=== PATIENT | female | born 1990 | race American Indian/Alaskan Native ===

== ENCOUNTER 2019-05-26 19:39 | Emergency (ER) | payer MEDICAID ==
--- NOTE | 2019-05-26 20:10 | Event Note ---
ED Screening Note ED Screening Note: pt presents for lower abd pain lower back pain +nausea, +vomiting no diarrhea no fever +frequency PMHx DM-type 1 no allergies to meds This initial assessment/diagnostic orders/clinical plan/treatment(s) is/are subject to change based on patients health status, clinical progression and re- assessment by fellow clinical providers in the ED. Further treatment and workup at subsequent clinical providers discretion. Patient/guardian urged not to elope from the ED as their condition may be serious if not clinically assessed and managed. Initial orders include: labs, UA, urine preg
[2019-05-26 21:22] LABS: Basophils # (Auto) 0.1 K/mm3 (0.0-0.1); Basophils % (Auto) 1.3 % (0.0-1.8); Eosinophils # (Auto) 0.1 K/mm3 (0.0-0.4); Eosinophils % (Auto) 1.5 % (0.0-4.3); Hematocrit 34.7 % (30.3-42.9); Hemoglobin 11.6 gm/dl (10.1-14.3); Lymphocytes # (Auto) 1.6 K/mm3 (1.2-5.4); Lymphocytes % (Auto) 32.6 % (13.4-35.0); Mean Corpuscular HGB Conc 33 % (30-34); Mean Corpuscular Volume 82 fl (79-97); Monocytes # (Auto) 0.4 K/mm3 (0.0-0.8); Monocytes % (Auto) 7.2 % (0.0-7.3); Platelet Count 210 K/mm3 (140-440); Red Blood Count 4.25 M/mm3 (3.65-5.03); Red Cell Distribution Width 13.3 % (13.2-15.2)
[2019-05-26 21:59] LABS: Alanine Aminotransferase 13 units/L (7-56); Albumin 3.6 g/dL (3.9-5); BUN/Creatinine Ratio 16; Blood Urea Nitrogen 14 mg/dL (7-17); Calcium 9.4 mg/dL (8.4-10.2); Hemolysis Index 4
--- NOTE | 2019-05-26 23:04 | Emergency Department Report ---
ED Abdominal Pain HPI - General Chief Complaint: Abdominal Pain Stated Complaint: HYPERGLYCEMIA Time Seen by Provider: 05/26/19 20:09 Source: patient, EMS Mode of arrival: Wheelchair Limitations: No Limitations - History of Present Illness Initial Comments: Patient is a 28-year-old female that presents emergency room with complaints of lower abdominal pain radiating to her right back. Patient states the pain is worse with movement and better with rest. Patient states the pain is a 8 out of 10. Patient states she's also been having a lot of constipation. Patient denies dysuria. Patient denies fever and chills. Patient states she's had a lot of nausea and vomiting as well. Patient denies blood in her vomitus or in her stool. Patient also complaining of elevated blood sugar. MD Complaint: abdominal pain -: Sudden Location: RLQ Radiation: R flank, back Migration to: no migration Severity: severe Severity scale (0 -10): 8 Quality: stabbing Consistency: constant Improves With: rest Worsens With: vomiting, movement Associated Symptoms: nausea, vomiting, constipation. denies: diarrhea, fever, chills, dysuria, hematemesis, hematochezia, melena, hematuria, syncope - Related Data Previous Rx's Medication Instructions Recorded Last Taken Type Ondansetron [Zofran Odt] 4 mg PO Q6HR PRN #15 tab.rapdis 05/27/19 Unknown Rx Allergies Allergy/AdvReac Type Severity Reaction Status Date / Time tomato Allergy Unknown Verified 05/26/19 20:01 ED Review of Systems ROS: Stated complaint: HYPERGLYCEMIA Other details as noted in HPI Constitutional: denies: chills, fever Eyes: denies: eye pain, eye discharge, vision change ENT: denies: ear pain, throat pain Respiratory: denies: cough, shortness of breath, wheezing Cardiovascular: denies: chest pain, palpitations Endocrine: no symptoms reported Gastrointestinal: abdominal pain, nausea, vomiting. denies: diarrhea Genitourinary: denies: urgency, dysuria, discharge Musculoskeletal: denies: back pain, joint swelling, arthralgia Skin: denies: rash, lesions Neurological: denies: headache, weakness, paresthesias Psychiatric: denies: anxiety, depression Hematological/Lymphatic: denies: easy bleeding, easy bruising ED Past Medical Hx - Past Medical History Previous Medical History?: Yes Hx Diabetes: Yes (Type 1) - Surgical History Past Surgical History?: No - Family History Family history: no significant - Social History Smoking Status: Never Smoker Substance Use Type: None - Medications Home Medications: Home Medications Medication Instructions Recorded Confirmed Last Taken Type Ondansetron [Zofran Odt] 4 mg PO Q6HR PRN #15 tab.judydis 05/27/19 Unknown Rx ED Physical Exam - General Limitations: No Limitations General appearance: alert, in no apparent distress - Head Head exam: Present: atraumatic, normocephalic - Eye Eye exam: Present: normal appearance - ENT ENT exam: Present: mucous membranes moist. Absent: mucous membranes dry - Neck Neck exam: Present: normal inspection - Respiratory Respiratory exam: Present: normal lung sounds bilaterally. Absent: respiratory distress, wheezes, rales - Cardiovascular Cardiovascular Exam: Present: regular rate, normal rhythm. Absent: systolic murmur, diastolic murmur, rubs, gallop - GI/Abdominal GI/Abdominal exam: Present: soft, tenderness (right lower quadrant tenderness), normal bowel sounds - Extremities Exam Extremities exam: Present: normal inspection - Back Exam Back exam: Present: normal inspection - Neurological Exam Neurological exam: Present: alert, oriented X3 - Psychiatric Psychiatric exam: Present: normal affect, normal mood - Skin Skin exam: Present: warm, dry, intact, normal color. Absent: rash ED Course Vital Signs 05/26/19 05/26/19 05/26/19 19:59 20:09 23:24 Temperature 99.1 F 99.1 F 98.5 F Pulse Rate 125 H 120 H 113 H Respiratory 22 20 19 Rate Blood Pressure 108/60 108/60 Blood Pressure 125/77 [Right] O2 Sat by Pulse 99 100 100 Oximetry 05/27/19 05/27/19 05/27/19 01:00 01:11 02:33 Temperature Pulse Rate 109 H 105 H Respiratory 16 16 17 Rate Blood Pressure Blood Pressure 128/73 107/60 [Right] O2 Sat by Pulse 97 97 99 Oximetry - Reevaluation(s) Reevaluation #1: I discussed all results with patient. Patient is stable for discharge. Patient was discharged home. Patient given discharge instructions. Patient voiced understanding of discharge instructions. Patient agrees with plan of care. 05/27/19 02:01 ED Medical Decision Making - Lab Data Result diagrams: 05/26/19 20:58 05/26/19 20:58 - Radiology Data Radiology results: report reviewed CT abdomen pelvis wo con INDICATION / CLINICAL INFORMATION: Abdominal pain. TECHNIQUE: All CT scans at this location are performed using CT dose reduction for ALARA by means of automated exposure control. COMPARISON: None available. FINDINGS: ABDOMEN: There is a 6.2 cm ovoid blood pool density lesion in the left lobe of the liver anteriorly. No other liver lesion is seen. The gallbladder is contracted without visible gallstones. The bile ducts, pancreas, spleen, adrenal glands, kidneys and bowel are normal. No adenopathy is seen. The lung bases are clear. PELVIS: The distal ureters and urinary bladder are normal. The uterus and adnexal regions are unremarkable. A normal appendix is present and there is no evidence of diverticulitis. No abnormal mass or fluid collection is seen. I do not identify a hernia. No acute osseous abnormality is identified. IMPRESSION: 1. No acute intra-abdominal disease is identified. 2. Incidental 6.2 cm blood pool density lesion in the liver probably represents a cavernous hemangioma. Nonemergent MRI may be helpful in further characterization. - Medical Decision Making Patient is a 28-year-old female that since emergency room with complaints of lower abdominal pain and back pain as well as nausea and vomiting. Patient found to have gastroenteritis. The patient's CT negative for acute findings. Patient noted to have a meningioma on her liver. Patient instructed to follow- up with her primary care for further evaluation of this hemangioma. Patient given Zofran for nausea. Patient given discharge instructions. Patient stable for discharge. Patient's labs essentially unremarkable. UA positive for asymptomatic pyuria. The patient does not have any symptoms of a UTI. Patient denies dysuria. - Differential Diagnosis nausea vomiting. Gastroenteritis. Abdominal pain. Critical care attestation.: If time is entered above; I have spent that time in minutes in the direct care of this critically ill patient, excluding procedure time. ED Disposition Clinical Impression: Gastroenteritis Abdominal pain Qualifiers: Abdominal location: right lower quadrant Qualified Code(s): R10.31 - Right lower quadrant pain Nausea & vomiting Qualifiers: Vomiting type: unspecified Vomiting Intractability: non-intractable Qualified Code(s): R11.2 - Nausea with vomiting, unspecified Disposition: DC- TO HOME OR SELFCARE Is pt being admited?: No Does the pt Need Aspirin: No Condition: Stable Instructions: Gastroenteritis (ED), Acute Nausea and Vomiting (ED), Abdominal Pain (ED) Additional Instructions: Patient to follow-up with primary care in 2-3 days. Patient to return to ER if condition worse. Patient to take Tylenol or ibuprofen when necessary for pain. Patient take meds as directed. Patient to increase water. Patient to eat a brat diet Prescriptions: Ondansetron [Zofran Odt] 4 mg PO Q6HR PRN #15 tab.rapdis PRN Reason: Nausea And Vomiting Ref[facility] [Primary Care Provider[facility] - 2-3 Days Forms: Work/School Release Form(ED) Time of Disposition: 02:00
[2019-05-27] MEDS ORDERED: TORADOL IM ONE (01:32)
[2019-05-27] MEDS ORDERED: TORADOL ONE (01:35)
--- NOTE | 2019-05-27 01:47 | Cat Scan Report ---
CT abdomen pelvis wo con INDICATION / CLINICAL INFORMATION: Abdominal pain. TECHNIQUE: All CT scans at this location are performed using CT dose reduction for ALARA by means of automated e xposure control. COMPARISON: None available. FINDINGS: ABDOMEN: There is a 6.2 cm ovoid blood pool density lesion in the left lobe of the liver anteriorly. No other liver lesion is seen. The gallbladder is contracted without visible gallstones. The bile priscilla ts, pancreas, spleen, adrenal glands, kidneys and bowel are normal. No adenopathy is seen. The lung b ases are clear. PELVIS: The distal ureters and urinary bladder are normal. The uterus and adnexal regions are unremar kable. A normal appendix is present and there is no evidence of diverticulitis. No abnormal mass or f luid collection is seen. I do not identify a hernia. No acute osseous abnormality is identified. IMPRESSION: 1. No acute intra-abdominal disease is identified. 2. Incidental 6.2 cm blood pool density lesion in the liver probably represents a cavernous hemangiom a. Nonemergent MRI may be helpful in further characterization. Signer Name: Bandar Rivera MD Signed: 05/27/2019 1:43 AM Workstation Name: [id number]
[2019-05-27 01:58] LABS: Bilirubin,Urine NEG (Negative); Blood,Urine MOD (Negative); Color,Urine Yellow (Yellow); Mucus,Urine 1+ /HPF; Protein,Urine <15 mg/dL mg/dL (Negative); Urobilinogen,Urine < 2.0 mg/dL (<2.0)
[2019-05-27 02:34] VITALS: BP 107/60
== END 2019-05-27 02:50 | disposition home or self-care (01) ==
LOC: ED 19:39
DX: K52.9 Noninfective gastroenteritis and colitis, unspecified (principal); E10.9 Type 1 diabetes mellitus without complications; Z91.018 Allergy to other foods; Z79.899 Other long term (current) drug therapy
CPT/HCPCS: 36415; 74176; 80053; 81001; 82805; 83690; 84703; 85025; 87086; 96372; 99284; J1885

== ENCOUNTER 2019-05-30 15:37 | Inpatient (IN) | payer MEDICAID ==
[2019-05-30] MEDS ORDERED: NACL 0.9% 1000 ML 1,000 ML IV ONE ×3 (15:54→17:10)
--- NOTE | 2019-05-30 16:17 | Emergency Department Report ---
ED General Adult HPI - General Chief complaint: Hyperglycemia Stated complaint: HYPERGLYCEMIA Time Seen by Provider: 05/30/19 15:54 Source: EMS Mode of arrival: Ambulatory Limitations: No Limitations - History of Present Illness Initial comments: 28-year-old female states she thinks she's been in DKA since Friday despite coming here on the and having it ruled out. She is very poor source of information at this point and reticent to answer questions. She may very well be in DKA at this point. With some duress he finally tells me that she took 20 units of insulin today. She will not answer most direct questions. Apparently she has been having nausea and likely vomiting. She has very poor historian at this point. Patient was here on the . She had relatively normal labs and normal CT at that time for evaluation of abdominal pain. She was not in DKA. -: week(s) Location: abdomen Severity scale (0 -10): 5 Associated Symptoms: denies other symptoms (poorly communicative), nausea/vomiting - Related Data Previous Rx's Medication Instructions Recorded Last Taken Type Ondansetron [Zofran Odt] 4 mg PO Q6HR PRN #15 tab.rapdis 05/27/19 Unknown Rx Allergies Allergy/AdvReac Type Severity Reaction Status Date / Time tomato Allergy Unknown Verified 05/26/19 20:01 ED Review of Systems ROS: Stated complaint: HYPERGLYCEMIA Other details as noted in HPI Constitutional: denies: chills, fever Eyes: denies: eye pain, eye discharge, vision change ENT: denies: ear pain, throat pain Respiratory: denies: cough, shortness of breath, wheezing Cardiovascular: denies: chest pain, palpitations Endocrine: no symptoms reported Gastrointestinal: abdominal pain, nausea, vomiting. denies: diarrhea Genitourinary: denies: urgency, dysuria, discharge Musculoskeletal: denies: back pain, joint swelling, arthralgia Skin: denies: rash, lesions Neurological: denies: headache, weakness, paresthesias Psychiatric: denies: anxiety, depression Hematological/Lymphatic: denies: easy bleeding, easy bruising ED Past Medical Hx - Past Medical History Previous Medical History?: Yes Hx Hypertension: No Hx CVA: No Hx Heart Attack/AMI: No Hx Congestive Heart Failure: No Hx Diabetes: Yes (Type 1) Hx Deep Vein Thrombosis: No Hx Pulmonary Embolism: No Hx GERD: No Hx Liver Disease: No Hx Renal Disease: No Hx of Cancer: No Hx Sickle Cell Disease: No Hx Arthritis: No Hx Headaches / Migraines: No Hx Seizures: No Hx Kidney Stones: No Hx Psychiatric Treatment: No Hx Asthma: No Hx COPD: No Hx Tuberculosis: No Hx Dementia: No Hx HIV: No - Surgical History Past Surgical History?: No Hx Coronary Stent: No Hx Open Heart Surgery: No Hx Pacemaker: No Hx Internal Defibrillator: No Hx Cholecystectomy: No Hx Appendectomy: No Hx Breast Surgery: No - Social History Smoking Status: Never Smoker Substance Use Type: None - Medications Home Medications: Home Medications Medication Instructions Recorded Confirmed Last Taken Type Ondansetron [Zofran Odt] 4 mg PO Q6HR PRN #15 tab.rapdis 05/27/19 Unknown Rx ED Physical Exam - General Limitations: Altered Mental Status (possibly) General appearance: in no apparent distress, lethargic - Head Head exam: Present: atraumatic, normocephalic - Eye Eye exam: Present: normal appearance. Absent: scleral icterus - ENT ENT exam: Present: mucous membranes moist - Neck Neck exam: Present: normal inspection. Absent: tenderness, meningismus - Respiratory Respiratory exam: Present: normal lung sounds bilaterally. Absent: respiratory distress - Cardiovascular Cardiovascular Exam: Present: normal rhythm, tachycardia. Absent: systolic murmur, diastolic murmur, rubs, gallop - GI/Abdominal GI/Abdominal exam: Present: soft, normal bowel sounds. Absent: distended, tenderness, guarding, rebound, rigid - Extremities Exam Extremities exam: Present: normal inspection - Back Exam Back exam: Present: normal inspection - Neurological Exam Neurological exam: Present: altered, CN II-XII intact (as testable). Absent: motor sensory deficit - Psychiatric Psychiatric exam: Present: normal mood, flat affect - Skin Skin exam: Present: warm, dry, intact, normal color. Absent: rash ED Course Vital Signs 05/30/19 16:01 Temperature 98.5 F Pulse Rate 121 H Respiratory 18 Rate Blood Pressure 171/103 Blood Pressure 171/103 [Right] O2 Sat by Pulse 100 Oximetry - Reevaluation(s) Reevaluation #1: Labs consistent with DKA. Patient placed on an insulin drip. Dr. Aspen duran. 05/30/19 17:14 05/30/19 17:14 ED Medical Decision Making - Lab Data Result diagrams: 05/30/19 16:08 05/30/19 16:08 Laboratory Results - last 24 hr 05/30/19 05/30/19 05/30/19 16:07 16:08 16:08 WBC 6.2 RBC 3.85 Hgb 10.8 Hct 32.2 MCV 84 MCH 28 MCHC 33 RDW 13.4 Plt Count 174 Lymph % (Auto) 13.1 L [place] % (Auto) 3.9 Eos % (Auto) 0.2 Baso % (Auto) 0.9 Lymph # 0.8 L [place] # 0.2 Eos # 0.0 Baso # 0.1 Seg Neutrophils % 81.9 H Seg Neutrophils # 5.1 PT 14.2 INR 1.13 APTT 22.4 L VBG pH Chloride Carbon Dioxide Anion Gap BUN Creatinine Estimated GFR BUN/Creatinine Ratio POC Glucose > 500 H Calcium Phosphorus Magnesium Total Bilirubin AST ALT Alkaline Phosphatase Total Creatine Kinase CK-MB (CK-2) CK-MB (CK-2) Rel Index Total Protein Albumin Albumin/Globulin Ratio 05/30/19 05/30/19 05/30/19 16:08 16:08 16:08 WBC RBC Hgb Hct MCV MCH MCHC RDW Plt Count Lymph % (Auto) [place] % (Auto) Eos % (Auto) Baso % (Auto) Lymph # [place] # Eos # Baso # Seg Neutrophils % Seg Neutrophils # PT INR APTT VBG pH 7.304 L Chloride 92.0 L Carbon Dioxide 17 L Anion Gap 26 BUN 19 H Creatinine 0.9 Estimated GFR > 60 BUN/Creatinine Ratio 21 POC Glucose Calcium 9.1 Phosphorus 4.10 Magnesium 1.80 Total Bilirubin 0.50 AST 17 ALT 10 Alkaline Phosphatase 97 Total Creatine Kinase 96 CK-MB (CK-2) 1.7 CK-MB (CK-2) Rel Index 1.7 Total Protein 7.4 Albumin 3.5 L Albumin/Globulin Ratio 0.9 glucose 598, K 5.4, NA 130 Critical Care Time: Yes Critical care time in (mins) excluding proc time.: 60 Critical care attestation.: If time is entered above; I have spent that time in minutes in the direct care of this critically ill patient, excluding procedure time. ED Disposition Clinical Impression: DKA (diabetic ketoacidoses) Qualifiers: Diabetes mellitus type: type 2 Diabetes mellitus complication detail: with coma Qualified Code(s): E11.11 - Type 2 diabetes mellitus with ketoacidosis with coma Disposition: DC-09 OP ADMIT IP TO THIS HOSP Is pt being admited?: Yes Does the pt Need Aspirin: Yes Condition: Stable Instructions: Diabetic Ketoacidosis (ED) Time of Disposition: 17:14
[2019-05-30 16:23] LABS: Basophils # (Auto) 0.1 K/mm3 (0.0-0.1); Basophils % (Auto) 0.9 % (0.0-1.8); Eosinophils % (Auto) 0.2 % (0.0-4.3); Hematocrit 32.2 % (30.3-42.9); Hemoglobin 10.8 gm/dl (10.1-14.3); Lymphocytes # (Auto) 0.8 K/mm3 (1.2-5.4); Lymphocytes % (Auto) 13.1 % (13.4-35.0); Mean Corpuscular HGB Conc 33 % (30-34); Mean Corpuscular Volume 84 fl (79-97); Monocytes # (Auto) 0.2 K/mm3 (0.0-0.8); Monocytes % (Auto) 3.9 % (0.0-7.3); Platelet Count 174 K/mm3 (140-440); Red Blood Count 3.85 M/mm3 (3.65-5.03); Red Cell Distribution Width 13.4 % (13.2-15.2)
[2019-05-30 16:33] LABS: INR 1.13 (0.87-1.13); Partial Thromboplastin Time 22.4 Sec. (24.2-36.6)
[2019-05-30 16:49] LABS: Creatine Kinase MB 1.7 ng/mL (0.0-4.0)
[2019-05-30 16:51] LABS: Alanine Aminotransferase 10 units/L (7-56); Albumin 3.5 g/dL (3.9-5); BUN/Creatinine Ratio 21; Blood Urea Nitrogen 19 mg/dL (7-17); Calcium 9.1 mg/dL (8.4-10.2); Hemolysis Index 1
[2019-05-30] MEDS ORDERED: D50W (25GM) Syringe IV PRN ×3 (17:09→19:41)
[2019-05-30 17:11] LABS: Bilirubin,Direct < 0.2 mg/dL (0-0.2)
[2019-05-30] MEDS ORDERED: ASPIRIN PO ONE (17:16)
[2019-05-30 17:20] LABS: Bilirubin,Urine NEG (Negative); Blood,Urine MOD (Negative); Color,Urine Colorless (Yellow); Mucus,Urine FEW /HPF; Protein,Urine <15 mg/dL mg/dL (Negative); Urobilinogen,Urine < 2.0 mg/dL (<2.0)
[2019-05-30 17:21] LABS: HCG Qualitative,Urine Negative (Negative)
[2019-05-30 17:29] LABS: Amphetamine Screen,Urine PRESUMPTIVE NEGATIVE; Benzodiazepines Screen,Urine PRESUMPTIVE NEGATIVE; Cannabinoid Screen,Urine PRESUMPTIVE NEGATIVE; Cocaine Screen,Urine PRESUMPTIVE NEGATIVE; Methadone Screen,Urine PRESUMPTIVE NEGATIVE; Opiate Screen,Urine PRESUMPTIVE NEGATIVE
[2019-05-30] MEDS ORDERED: TORADOL IM ONE (17:29)
[2019-05-30] MEDS ORDERED: TORADOL ONE (17:30)
[2019-05-30] MEDS ORDERED: HumuLIN R 100 UNITS in NACL 0.9% 99 ML IV SCH ×2 (18:00→19:00)
[2019-05-30 18:02] LABS: BUN/Creatinine Ratio 21; Blood Urea Nitrogen 19 mg/dL (7-17); Calcium 9.3 mg/dL (8.4-10.2); Hemolysis Index 6
--- NOTE | 2019-05-30 18:05 | History and Physical Report ---
History of Present Illness Date of examination: 05/30/19 Date of admission: 05/30/19 17:17 Chief complaint: Nausea and vomiting for one day History of present illness: 28 year old AAF with history of Type 1 diabetes comes in for persistent vomiting and nausea.Also feels weak and dehydrated.no fever or chills.Very poor historian.Says she has been noncompliant with her insulin intake.patient came to ER on and was discharged.Had CT abdomen for abdominal painwhich did not show any acute findings. Past Medical History Previous Medical History?: Yes Diabetes: Yes (Type 1) Surgical History None Social History Smoking Status: Never Smoker Substance Use Type: None Family History Hypertension: Medications Home Medications: Home Medications Medication Instructions Recorded Confirmed Last Taken Type Ondansetron [Zofran Odt] 4 mg PO Q6HR PRN #15 tab.rapdis 05/27/19 Unknown Rx Review of Systems ROS: Stated complaint: HYPERGLYCEMIA Other details as noted in HPI Constitutional: denies: chills, fever Eyes: denies: eye pain, eye discharge, vision change ENT: denies: ear pain, throat pain Respiratory: denies: cough, shortness of breath, wheezing Cardiovascular: denies: chest pain, palpitations Endocrine: no symptoms reported Gastrointestinal: abdominal pain, nausea, vomiting. denies: diarrhea Genitourinary: denies: urgency, dysuria, discharge Musculoskeletal: denies: back pain, joint swelling, arthralgia Skin: denies: rash, lesions Neurological: denies: headache, weakness, paresthesias Psychiatric: denies: anxiety, depression Hematological/Lymphatic: denies: easy bleeding, easy bruising Medications and Allergies Allergies Allergy/AdvReac Type Severity Reaction Status Date / Time tomato Allergy Unknown Verified 05/26/19 20:01 Home Medications Medication Instructions Recorded Confirmed Last Taken Type Ondansetron [Zofran Odt] 4 mg PO Q6HR PRN #15 tab.rapdis 05/27/19 Unknown Rx Active Meds: Active Medications Dextrose (D50w (25gm) Syringe) 0 ml IV ONCE PRN PRN Reason: Hypoglycemia Sodium Chloride (Nacl 0.9% 1000 Ml) 1,000 mls @ 999 mls/hr IV BOLUS ONE Stop: 05/30/19 18:09 Last Admin: 05/30/19 17:29 Dose: 999 mls/hr Documented by: Insulin Human Regular 100 (units/ Sodium Chloride) 100 mls @ 1 mls/hr IV TITR RITESH; Protocol Sodium Chloride (Nacl 0.9% 1000 Ml) 1,000 mls @ 999 mls/hr IV BOLUS ONE Stop: 05/30/19 18:10 Last Admin: 05/30/19 17:35 Dose: 999 mls/hr Documented by: Exam - Constitutional Vitals: Temp Pulse Resp BP Pulse Ox 98.5 F 121 H 18 171/103 100 05/30/19 16:01 05/30/19 16:01 05/30/19 16:01 05/30/19 16:01 05/30/19 16:01 General appearance: Present: no acute distress, well-nourished - EENT Eyes: Present: PERRL ENT: hearing intact, clear oral mucosa - Neck Neck: Present: supple, normal ROM - Respiratory Respiratory effort: normal Respiratory: bilateral: CTA - Cardiovascular Heart rate: 98 Rhythm: regular Heart Sounds: Present: S1 & S2. Absent: rub, click - Extremities Extremities: no ischemia, pulses intact, pulses symmetrical, No edema Peripheral Pulses: within normal limits - Abdominal General gastrointestinal: Present: soft, non-tender, non-distended, normal bowel sounds Female genitourinary: Present: normal - Rectal Rectal Exam: stool brown - Integumentary Integumentary: Present: clear, warm, dry - Musculoskeletal Musculoskeletal: generalized weakness - Psychiatric Psychiatric: intact judgment & insight, memory intact, cooperative, depressed - Neurologic Neurologic: CNII-XII intact, moves all extremities, gait normal - Allied Health Allied health notes reviewed: nursing, case management Results - Labs CBC & Chem 7: 05/30/19 16:08 05/31/19 04:52 Labs: Laboratory Last Values WBC 6.2 K/mm3 (4.5-11.0) 05/30/19 16:08 RBC 3.85 M/mm3 (3.65-5.03) 05/30/19 16:08 Hgb 10.8 gm/dl (10.1-14.3) 05/30/19 16:08 Hct 32.2 % (30.3-42.9) 05/30/19 16:08 MCV 84 fl (79-97) 05/30/19 16:08 MCH 28 pg (28-32) 05/30/19 16:08 MCHC 33 % (30-34) 05/30/19 16:08 RDW 13.4 % (13.2-15.2) 05/30/19 16:08 Plt Count 174 K/mm3 (140-440) 05/30/19 16:08 Lymph % (Auto) 13.1 % (13.4-35.0) L 05/30/19 16:08 [place] % (Auto) 3.9 % (0.0-7.3) 05/30/19 16:08 Eos % (Auto) 0.2 % (0.0-4.3) 05/30/19 16:08 Baso % (Auto) 0.9 % (0.0-1.8) 05/30/19 16:08 Lymph # 0.8 K/mm3 (1.2-5.4) L 05/30/19 16:08 [place] # 0.2 K/mm3 (0.0-0.8) 05/30/19 16:08 Eos # 0.0 K/mm3 (0.0-0.4) 05/30/19 16:08 Baso # 0.1 K/mm3 (0.0-0.1) 05/30/19 16:08 Seg Neutrophils % 81.9 % (40.0-70.0) H 05/30/19 16:08 Seg Neutrophils # 5.1 K/mm3 (1.8-7.7) 05/30/19 16:08 PT 14.2 Sec. (12.2-14.9) 05/30/19 16:08 INR 1.13 (0.87-1.13) 05/30/19 16:08 APTT 22.4 Sec. (24.2-36.6) L 05/30/19 16:08 VBG pH 7.304 (7.320-7.420) L 05/30/19 16:08 Sodium 131 mmol/L (137-145) L 05/30/19 17:16 Potassium 5.1 mmol/L (3.6-5.0) H 05/30/19 17:16 Chloride 91.8 mmol/L (98-107) L 05/30/19 17:16 Carbon Dioxide 15 mmol/L (22-30) L 05/30/19 17:16 29 mmol/L 05/30/19 17:16 BUN 19 mg/dL (7-17) H 05/30/19 17:16 0.9 mg/dL (0.7-1.2) 05/30/19 17:16 Estimated GFR > 60 ml/min 05/30/19 17:16 21 % 05/30/19 17:16 Glucose 598 mg/dL (65-100) H* 05/30/19 16:08 POC Glucose > 500 (70-105) H 05/30/19 16:07 Negative (Negative) 05/30/19 16:08 Calcium 9.3 mg/dL (8.4-10.2) 05/30/19 17:16 Phosphorus 4.60 mg/dL (2.5-4.5) H 05/30/19 17:16 Magnesium 1.70 mg/dL (1.7-2.3) 05/30/19 17:16 0.50 mg/dL (0.1-1.2) 05/30/19 16:08 < 0.2 mg/dL (0-0.2) 05/30/19 16:08 0.3 mg/dL 05/30/19 16:08 AST 17 units/L (5-40) 05/30/19 16:08 ALT 10 units/L (7-56) 05/30/19 16:08 97 units/L (35-129) 05/30/19 16:08 96 units/L (30-135) 05/30/19 16:08 CK-MB (CK-2) 1.7 ng/mL (0.0-4.0) 05/30/19 16:08 CK-MB (CK-2) Rel Index 1.7 (0-4) 05/30/19 16:08 7.4 g/dL (6.3-8.2) 05/30/19 16:08 3.5 g/dL (3.9-5) L 05/30/19 16:08 0.9 % 05/30/19 16:08 Colorless (Yellow) 05/30/19 17:06 Clear (Clear) 05/30/19 17:06 5.0 (5.0-7.0) 05/30/19 17:06 Ur Specific [place] 1.023 (1.003-1.030) 05/30/19 17:06 <15 mg/dl mg/dL (Negative) 05/30/19 17:06 >=500 mg/dL (Negative) 05/30/19 17:06 80 mg/dL (Negative) 05/30/19 17:06 Mod (Negative) 05/30/19 17:06 Neg (Negative) 05/30/19 17:06 Neg (Negative) 05/30/19 17:06 < 2.0 mg/dL (<2.0) 05/30/19 17:06 Ur Leukocyte Esterase Neg (Negative) 05/30/19 17:06 1.0 /HPF (0.0-6.0) 05/30/19 17:06 4.0 /HPF (0.0-6.0) 05/30/19 17:06 U Epithel Cells (Auto) < 1.0 /HPF (0-13.0) 05/30/19 17:06 Few /HPF 05/30/19 17:06 Urine HCG, Qual Negative (Negative) 05/30/19 17:06 Presumptive negative 05/30/19 17:06 Presumptive negative 05/30/19 17:06 Ur Barbiturates Screen Presumptive negative 05/30/19 17:06 Ur Phencyclidine Scrn Presumptive negative 05/30/19 17:06 Ur Amphetamines Screen Presumptive negative 05/30/19 17:06 U Benzodiazepines Scrn Presumptive negative 05/30/19 17:06 Presumptive negative 05/30/19 17:06 U Marijuana (THC) Screen Presumptive negative 05/30/19 17:06 Disclamer 05/30/19 17:06 Short CBC 05/30/19 Range/Units 16:08 WBC 6.2 (4.5-11.0) K/mm3 Hgb 10.8 (10.1-14.3) gm/dl Hct 32.2 (30.3-42.9) % Plt Count 174 (140-440) K/mm3 BMP 05/30/19 05/30/19 05/30/19 16:08 17:16 19:36 Sodium 130 L D 131 L 133 L Potassium 5.4 H D 5.1 H 6.2 H* D Chloride 92.0 L 91.8 L 96.8 L Carbon Dioxide 17 L 15 L 13 L BUN 19 H 19 H 20 H Creatinine 0.9 0.9 0.9 Glucose 598 H* 579 H* 566 H* Calcium 9.1 9.3 8.6 05/30/19 05/31/19 22:37 04:52 Sodium 135 L 140 Potassium 5.5 H 4.2 D Chloride 99.2 109.7 H Carbon Dioxide 10 L 18 L D BUN 22 H 18 H Creatinine 0.9 0.9 Glucose 541 H* 197 H Calcium 9.3 8.9 Cardiac Enzymes 05/30/19 Range/Units 16:08 Total Creatine Kinase 96 (30-135) units/L CK-MB (CK-2) 1.7 (0.0-4.0) ng/mL Liver Function 05/30/19 05/31/19 Range/Units 16:08 04:52 Total Bilirubin 0.50 0.20 (0.1-1.2) mg/dL Direct Bilirubin < 0.2 (0-0.2) mg/dL AST 17 13 (5-40) units/L ALT 10 9 (7-56) units/L Alkaline Phosphatase 97 82 (35-129) units/L Albumin 3.5 L 3.1 L (3.9-5) g/dL Urine 05/30/19 Range/Units 17:06 Urine Color Colorless (Yellow) Urine pH 5.0 (5.0-7.0) Ur Specific [place] 1.023 (1.003-1.030) Urine Protein <15 mg/dl (Negative) mg/dL Urine Glucose (UA) >=500 (Negative) mg/dL Assessment and Plan Assessment and plan: Critical care time 34 minutes: The high probabilty of a clinically significant ,sudden or life threatening deterioration of the pulmonary cardiac renal systems required my full attention, intervention and personal management.The aggregate critical care time is 40 minutes.The time is in addition to time spent performing reported procedures which includes the following 1 Data review and interpretation 2.patient assesment and monitoring of vital signs 3 Documentation 4.Medication orders and management Advance Directives: Yes (Full code) VTE prophylaxis?: Chemical Plan of care discussed with patient/family: Yes - Patient Problems (1) DKA (diabetic ketoacidoses) Current Visit: Yes Status: Acute Qualifiers: Diabetes mellitus type: type 1 Diabetes mellitus complication detail: without coma Qualified Code(s): E10.10 - Type 1 diabetes mellitus with ketoacidosis without coma Plan to address problem: Patient has Urine Ketones of 80 Ph of 7.3 High anion gap of 29 Early DKA IV Insulin and IV fluids for now Monitor BMP frequently Counselled about compliance Will defer to primary team about basal bolus regimen or Insulin 70/30 bid with regular insulin before lunch time (2) Hyperkalemia Current Visit: Yes Status: Acute Plan to address problem: IV Calcium Gluconate given With Insulin drip should normalize in the next few hours (3) Malnutrition Current Visit: Yes Status: Chronic Qualifiers: Protein-calorie malnutrition severity: mild Plan to address problem: Dietary consult (4) Hyponatremia Current Visit: Yes Status: Acute Plan to address problem: Should correct with Correction of Blood Glucose (5) DVT prophylaxis Current Visit: Yes Status: Acute Plan to address problem: On Lovenox and GI prophylaxis
[2019-05-30] MEDS ORDERED: TYLENOL PO PRN ×2 (18:07→19:40)
[2019-05-30] MEDS ORDERED: SODIUM CHLORIDE FLUSH SYRINGE 10 ML IV PRN ×3 (18:07→19:40)
[2019-05-30] MEDS ORDERED: KCL 10MEQ/100ML 10 MEQ/100 ML BAG IV SCH ×2 (19:00)
[2019-05-30] MEDS ORDERED: D5W/0.45% NACL/KCL 20 MEQ 20 MEQ/1,000 ML BAG IV SCH (20:00)
[2019-05-30 20:12] LABS: BUN/Creatinine Ratio 22; Blood Urea Nitrogen 20 mg/dL (7-17); Calcium 8.6 mg/dL (8.4-10.2); Hemolysis Index 74
[2019-05-30] MEDS ORDERED: CALCIUM GLUCONATE 2,000 MG in NACL 0.9% 100 ML IV ONE (20:43)
[2019-05-30] MEDS: ZOFRAN IV PRN (20:50)
[2019-05-30] MEDS: DILAUDID IV PRN (20:50)
[2019-05-30] MEDS: HumuLIN R 100 UNITS in NACL 0.9% 99 ML IV SCH (21:51)
[2019-05-30] MEDS: NACL 0.9% 1000 ML 1,000 ML IV SCH (21:52)
[2019-05-30] MEDS ORDERED: SODIUM CHLORIDE FLUSH SYRINGE 10 ML IV SCH ×2 (22:00)
[2019-05-30] MEDS ORDERED: LOVENOX SUB-Q SCH (22:00)
[2019-05-30] MEDS: PEPCID IV SCH (22:14)
[2019-05-30] MEDS: SODIUM CHLORIDE FLUSH SYRINGE 10 ML IV SCH (22:15)
[2019-05-30] MEDS: LOVENOX SUB-Q SCH (22:15)
[2019-05-30 23:02] LABS: BUN/Creatinine Ratio 24; Blood Urea Nitrogen 22 mg/dL (7-17); Calcium 9.3 mg/dL (8.4-10.2); Hemolysis Index 2
[2019-05-30 23:59] LABS: Creatinine,Urine 23.8 mg/dL (0.1-20.0); Microalbumin/Creatinine Ratio 50.4 ug/mg
[2019-05-31] MEDS: ZOFRAN IV PRN ×3 (00:01→15:49)
[2019-05-31] MEDS: REGLAN IV PRN ×2 (01:24→21:21)
[2019-05-31] MEDS: NACL 0.9% 1000 ML 1,000 ML IV SCH ×2 (03:19→21:21)
[2019-05-31] MEDS: DILAUDID IV PRN ×5 (03:46→23:26)
[2019-05-31 05:48] LABS: Alanine Aminotransferase 9 units/L (7-56); Albumin 3.1 g/dL (3.9-5); BUN/Creatinine Ratio 20; Blood Urea Nitrogen 18 mg/dL (7-17); Calcium 8.9 mg/dL (8.4-10.2); Hemolysis Index 0
[2019-05-31] MEDS: KCL 10MEQ/100ML 10 MEQ/100 ML BAG IV SCH ×2 (06:52→06:53)
[2019-05-31] MEDS: HumuLIN R 100 UNITS in NACL 0.9% 99 ML IV SCH (07:21)
[2019-05-31] MEDS: PEPCID IV SCH ×2 (09:46→21:21)
[2019-05-31] MEDS: SODIUM CHLORIDE FLUSH SYRINGE 10 ML IV SCH ×2 (09:46→23:25)
[2019-05-31 10:12] LABS: BUN/Creatinine Ratio 20; Blood Urea Nitrogen 16 mg/dL (7-17); Calcium 8.7 mg/dL (8.4-10.2); Hemolysis Index 24
[2019-05-31 10:54] LABS: BUN/Creatinine Ratio 20; Blood Urea Nitrogen 16 mg/dL (7-17); Calcium 8.9 mg/dL (8.4-10.2); Hemolysis Index 6
[2019-05-31 12:17] LABS: BUN/Creatinine Ratio 21; Blood Urea Nitrogen 15 mg/dL (7-17); Calcium 8.9 mg/dL (8.4-10.2); Hemolysis Index 12
--- NOTE | 2019-05-31 12:18 | Consultation ---
History of Present Illness Consult date: 05/31/19 Requesting physician: ARPIT FULLER Reason for consult: other (DKA) History of present illness: PULMONARY/CCM CONSULT NOTE (Full dictation # [id number]) Please see dictated notes for full details Medications and Allergies Allergies Allergy/AdvReac Type Severity Reaction Status Date / Time tomato Allergy Unknown Verified 05/26/19 20:01 Home Medications Medication Instructions Recorded Confirmed Last Taken Type Ondansetron [Zofran ODT TAB] 4 mg PO Q6HR PRN #15 tab.rapdis 05/27/19 06/01/19 Unknown Rx Antacid [Alum-Mag Hydrox-Simeth 30 ml PO Q4H PRN #1 bottle 06/03/19 Unknown Rx [id number]] Hydralazine HCl 50 mg PO TID #90 tablet 06/03/19 Unknown Rx Insulin NPH/Regular [NovoLIN 70/30] 15 unit SUB-Q BIDDIAB #1 vial 06/03/19 Unknown Rx Pantoprazole [Protonix TAB] 40 mg PO QDAY #30 tablet 06/03/19 Unknown Rx Propranolol [Inderal] 40 mg PO Q8HR #90 tablet 06/03/19 Unknown Rx methIMAzole [Tapazole] 5 mg PO Q8HR #90 tablet 06/03/19 Unknown Rx Active Meds: Active Medications Acetaminophen (Tylenol) 650 mg PO Q4H PRN PRN Reason: Pain MILD(1-3)/Fever >100.5/ABRAMS Dextrose (D50w (25gm) Syringe) 0 ml IV ONCE PRN PRN Reason: Hypoglycemia Enoxaparin Sodium (Lovenox) 40 mg SUB-Q QDAY@2200 RITESH Last Admin: 05/30/19 22:15 Dose: 40 mg Documented by: Famotidine (Pepcid) 20 mg IV BID RITESH Last Admin: 05/31/19 09:46 Dose: 20 mg Documented by: Hydromorphone HCl (Dilaudid) 0.5 mg IV Q3H PRN PRN Reason: Pain , Severe (7-10) Last Admin: 05/31/19 09:59 Dose: 0.5 mg Documented by: Insulin Human Regular 100 (units/ Sodium Chloride) 100 mls @ 1 mls/hr IV TITR RITESH; Protocol Last Titration: 05/31/19 10:32 Dose: 6 units/hr, 6 mls/hr Documented by: Potassium Chloride/Dextrose/Sod Cl (D5w/0.45% Nacl/Kcl 20 Meq) 20 meq in 1,000 mls @ 125 mls/hr IV DIRECT RITESH Last Admin: 05/31/19 06:45 Dose: 125 mls/hr Documented by: Sodium Chloride (Nacl 0.9% 1000 Ml) 1,000 mls @ 125 mls/hr IV DIRECT RITESH Last Infusion: 05/31/19 07:22 Dose: 0 mls/hr Documented by: Metoclopramide HCl (Reglan) 10 mg IV Q6H PRN PRN Reason: Nausea And Vomiting Last Admin: 05/31/19 01:24 Dose: 10 mg Documented by: Ondansetron HCl (Zofran) 4 mg IV Q8H PRN PRN Reason: Nausea And Vomiting Last Admin: 05/30/19 20:50 Dose: 4 mg Documented by: Oxycodone/Acetaminophen (Percocet 5/325) 1 tab PO Q6H PRN PRN Reason: Pain, Moderate (4-6) Sodium Chloride (Sodium Chloride Flush Syringe 10 Ml) 10 ml IV BID RITESH Last Admin: 05/31/19 09:46 Dose: 10 ml Documented by: Sodium Chloride (Sodium Chloride Flush Syringe 10 Ml) 10 ml IV PRN PRN PRN Reason: LINE FLUSH Physical Examination Vital signs: Vital Signs Pulse Ox 100 05/30/19 15:47 Results - Laboratory Findings CBC and BMP: 05/30/19 16:08 06/02/19 07:45 PT/INR, D-dimer PT 14.2 Sec. (12.2-14.9) 05/30/19 16:08 INR 1.13 (0.87-1.13) 05/30/19 16:08 Abnormal lab findings: Abnormal Labs 05/30/19 05/30/19 05/30/19 16:07 16:08 16:08 Lymph % (Auto) 13.1 L Lymph # 0.8 L Seg Neutrophils % 81.9 H APTT 22.4 L VBG pH Sodium Potassium Chloride Carbon Dioxide BUN Glucose POC Glucose > 500 H Hemoglobin A1c Phosphorus Albumin Urine Creatinine 05/30/19 05/30/19 05/30/19 16:08 16:08 16:08 Lymph % (Auto) Lymph # Seg Neutrophils % APTT VBG pH 7.304 L Sodium 130 L D Potassium 5.4 H D Chloride 92.0 L Carbon Dioxide 17 L BUN 19 H Glucose 598 H* POC Glucose Hemoglobin A1c 10.7 H Phosphorus Albumin 3.5 L Urine Creatinine 05/30/19 05/30/19 05/30/19 17:16 17:16 18:07 Lymph % (Auto) Lymph # Seg Neutrophils % APTT VBG pH Sodium 131 L Potassium 5.1 H Chloride 91.8 L Carbon Dioxide 15 L BUN 19 H Glucose 579 H* POC Glucose Hemoglobin A1c Phosphorus 4.60 H Albumin Urine Creatinine 23.8 H 05/30/19 05/30/19 05/30/19 19:36 19:36 19:37 Lymph % (Auto) Lymph # Seg Neutrophils % APTT VBG pH Sodium 133 L Potassium 6.2 H* D Chloride 96.8 L Carbon Dioxide 13 L BUN 20 H Glucose 566 H* POC Glucose 483 H Hemoglobin A1c Phosphorus 4.90 H Albumin Urine Creatinine 05/30/19 05/30/19 05/30/19 20:52 22:08 22:37 Lymph % (Auto) Lymph # Seg Neutrophils % APTT VBG pH Sodium 135 L Potassium 5.5 H Chloride Carbon Dioxide 10 L BUN 22 H Glucose 541 H* POC Glucose > 500 H > 500 H Hemoglobin A1c Phosphorus Albumin Urine Creatinine 05/30/19 05/31/19 05/31/19 23:11 00:05 01:23 Lymph % (Auto) Lymph # Seg Neutrophils % APTT VBG pH Sodium Potassium Chloride Carbon Dioxide BUN Glucose POC Glucose 490 H > 500 H 388 H Hemoglobin A1c Phosphorus Albumin Urine Creatinine 05/31/19 05/31/19 05/31/19 02:03 03:05 04:13 Lymph % (Auto) Lymph # Seg Neutrophils % APTT VBG pH Sodium Potassium Chloride Carbon Dioxide BUN Glucose POC Glucose 336 H 270 H 230 H Hemoglobin A1c Phosphorus Albumin Urine Creatinine 05/31/19 05/31/19 05/31/19 04:52 05:25 06:05 Lymph % (Auto) Lymph # Seg Neutrophils % APTT VBG pH Sodium Potassium Chloride 109.7 H Carbon Dioxide 18 L D BUN 18 H Glucose 197 H POC Glucose 209 H 186 H Hemoglobin A1c Phosphorus Albumin 3.1 L Urine Creatinine 05/31/19 05/31/19 05/31/19 07:11 08:42 09:17 Lymph % (Auto) Lymph # Seg Neutrophils % APTT VBG pH Sodium Potassium Chloride 111.4 H Carbon Dioxide 19 L BUN Glucose 178 H POC Glucose 171 H 196 H Hemoglobin A1c Phosphorus Albumin Urine Creatinine 05/31/19 05/31/19 05/31/19 09:50 10:23 10:38 Lymph % (Auto) Lymph # Seg Neutrophils % APTT VBG pH Sodium Potassium Chloride 111.0 H Carbon Dioxide 21 L BUN Glucose 183 H POC Glucose 210 H 193 H Hemoglobin A1c Phosphorus Albumin Urine Creatinine
[2019-05-31] MEDS ORDERED: D50W (25GM) Syringe IV PRN (14:14)
[2019-05-31] MEDS ORDERED: LANTUS SUB-Q ONE (14:30)
--- NOTE | 2019-05-31 14:58 | Progress Note ---
Assessment and Plan Assessment and plan: DKA. Resolved. Anion gap is closed and patient will be transitioned to long- acting insulin home regimen. We will discontinue the IV insulin. The patient will be transferred to the floor. Start ADA diet and also add sliding scale insulin. Hyperkalemia. Resolved. Hyponatremia. Etiology secondary to hyperglycemia. Follow-up BMP. Disposition. Anticipate discharge in a.m. if BG has stabilized History Interval history: No new issues overnight. Hospitalist Physical - Constitutional Vitals: Temp Pulse Resp BP Pulse Ox 98.8 F 119 H 17 137/85 99 05/31/19 08:00 05/31/19 14:00 05/31/19 14:00 05/31/19 14:00 05/31/19 14:00 General appearance: Present: no acute distress, well-nourished - EENT Eyes: Present: PERRL, EOM intact ENT: hearing intact, clear oral mucosa, dentition normal - Neck Neck: Present: supple, normal ROM - Respiratory Respiratory effort: normal Respiratory: bilateral: CTA - Cardiovascular Rhythm: regular Heart Sounds: Present: S1 & S2. Absent: gallop, rub - Extremities Extremities: no ischemia, No edema, Full ROM - Abdominal General gastrointestinal: soft, non-tender, non-distended, normal bowel sounds - Integumentary Integumentary: Present: clear, warm, dry - Neurologic Neurologic: CNII-XII intact, moves all extremities Results - Labs CBC & Chem 7: 05/30/19 16:08 05/31/19 11:45 Labs: Laboratory Last Values WBC 6.2 K/mm3 (4.5-11.0) 05/30/19 16:08 RBC 3.85 M/mm3 (3.65-5.03) 05/30/19 16:08 Hgb 10.8 gm/dl (10.1-14.3) 05/30/19 16:08 Hct 32.2 % (30.3-42.9) 05/30/19 16:08 MCV 84 fl (79-97) 05/30/19 16:08 MCH 28 pg (28-32) 05/30/19 16:08 MCHC 33 % (30-34) 05/30/19 16:08 RDW 13.4 % (13.2-15.2) 05/30/19 16:08 Plt Count 174 K/mm3 (140-440) 05/30/19 16:08 Lymph % (Auto) 13.1 % (13.4-35.0) L 05/30/19 16:08 [place] % (Auto) 3.9 % (0.0-7.3) 05/30/19 16:08 Eos % (Auto) 0.2 % (0.0-4.3) 05/30/19 16:08 Baso % (Auto) 0.9 % (0.0-1.8) 05/30/19 16:08 Lymph # 0.8 K/mm3 (1.2-5.4) L 05/30/19 16:08 [place] # 0.2 K/mm3 (0.0-0.8) 05/30/19 16:08 Eos # 0.0 K/mm3 (0.0-0.4) 05/30/19 16:08 Baso # 0.1 K/mm3 (0.0-0.1) 05/30/19 16:08 Seg Neutrophils % 81.9 % (40.0-70.0) H 05/30/19 16:08 Seg Neutrophils # 5.1 K/mm3 (1.8-7.7) 05/30/19 16:08 PT 14.2 Sec. (12.2-14.9) 05/30/19 16:08 INR 1.13 (0.87-1.13) 05/30/19 16:08 APTT 22.4 Sec. (24.2-36.6) L 05/30/19 16:08 VBG pH 7.304 (7.320-7.420) L 05/30/19 16:08 Sodium 140 mmol/L (137-145) 05/31/19 11:45 Potassium 4.0 mmol/L (3.6-5.0) 05/31/19 11:45 Chloride 109.8 mmol/L (98-107) H 05/31/19 11:45 Carbon Dioxide 20 mmol/L (22-30) L 05/31/19 11:45 14 mmol/L 05/31/19 11:45 BUN 15 mg/dL (7-17) 05/31/19 11:45 0.7 mg/dL (0.7-1.2) 05/31/19 11:45 Estimated GFR > 60 ml/min 05/31/19 11:45 21 % 05/31/19 11:45 Glucose 165 mg/dL (65-100) H 05/31/19 11:45 POC Glucose 155 (70-105) H 05/31/19 13:24 10.7 % (4-6) H 05/30/19 16:08 Negative (Negative) 05/30/19 16:08 Calcium 8.9 mg/dL (8.4-10.2) 05/31/19 11:45 Phosphorus 4.90 mg/dL (2.5-4.5) H 05/30/19 19:36 Magnesium 1.70 mg/dL (1.7-2.3) 05/30/19 19:36 0.20 mg/dL (0.1-1.2) 05/31/19 04:52 < 0.2 mg/dL (0-0.2) 05/30/19 16:08 0.3 mg/dL 05/30/19 16:08 AST 13 units/L (5-40) 05/31/19 04:52 ALT 9 units/L (7-56) 05/31/19 04:52 82 units/L (35-129) 05/31/19 04:52 96 units/L (30-135) 05/30/19 16:08 CK-MB (CK-2) 1.7 ng/mL (0.0-4.0) 05/30/19 16:08 CK-MB (CK-2) Rel Index 1.7 (0-4) 05/30/19 16:08 6.3 g/dL (6.3-8.2) 05/31/19 04:52 3.1 g/dL (3.9-5) L 05/31/19 04:52 1.0 % 05/31/19 04:52 Colorless (Yellow) 05/30/19 17:06 Clear (Clear) 05/30/19 17:06 5.0 (5.0-7.0) 05/30/19 17:06 Ur Specific [place] 1.023 (1.003-1.030) 05/30/19 17:06 <15 mg/dl mg/dL (Negative) 05/30/19 17:06 >=500 mg/dL (Negative) 05/30/19 17:06 80 mg/dL (Negative) 05/30/19 17:06 Mod (Negative) 05/30/19 17:06 Neg (Negative) 05/30/19 17:06 Neg (Negative) 05/30/19 17:06 < 2.0 mg/dL (<2.0) 05/30/19 17:06 Ur Leukocyte Esterase Neg (Negative) 05/30/19 17:06 1.0 /HPF (0.0-6.0) 05/30/19 17:06 4.0 /HPF (0.0-6.0) 05/30/19 17:06 U Epithel Cells (Auto) < 1.0 /HPF (0-13.0) 05/30/19 17:06 Few /HPF 05/30/19 17:06 23.8 mg/dL (0.1-20.0) H 05/30/19 18:07 < 1.2 mg/dL (0.1-34.0) 05/30/19 18:07 Microalb/Creat Ratio 50.4 ug/mg 05/30/19 18:07 Urine HCG, Qual Negative (Negative) 05/30/19 17:06 Presumptive negative 05/30/19 17:06 Presumptive negative 05/30/19 17:06 Ur Barbiturates Screen Presumptive negative 05/30/19 17:06 Ur Phencyclidine Scrn Presumptive negative 05/30/19 17:06 Ur Amphetamines Screen Presumptive negative 05/30/19 17:06 U Benzodiazepines Scrn Presumptive negative 05/30/19 17:06 Presumptive negative 05/30/19 17:06 U Marijuana (THC) Screen Presumptive negative 05/30/19 17:06 Disclamer 05/30/19 17:06 Active Medications - Current Medications Current Medications: Generic Name Dose Route Start Last Admin Trade Name Freq PRN Reason Stop Dose Admin Acetaminophen 650 mg 05/30/19 18:07 Tylenol PO Q4H PRN Pain MILD(1-3)/Fever >100.5/ABRAMS Dextrose 50 ml 05/31/19 14:14 D50w (25gm) Syringe IV PRN PRN Hypoglycemia Enoxaparin Sodium 40 mg 05/30/19 22:00 05/30/19 22:15 Lovenox SUB-Q 40 mg QDAY@2200 RITESH Administration Famotidine 20 mg 05/30/19 22:00 05/31/19 09:46 Pepcid IV 20 mg BID RITESH Administration Sodium Chloride 1,000 mls @ 75 mls/hr 05/31/19 15:00 Nacl 0.9% 1000 Ml IV DIRECT [facility] Insulin Glargine 58 units 06/01/19 10:00 Lantus SUB-Q QAM [facility] Insulin Human Regular 0 units 05/31/19 16:30 Humulin R SUB-Q ACHS [facility] Protocol Metoclopramide HCl 10 mg 05/30/19 19:40 05/31/19 01:24 Reglan IV 10 mg Q6H PRN Administration Nausea And Vomiting Ondansetron HCl 4 mg 05/30/19 18:07 05/30/19 20:50 Zofran IV 4 mg Q8H PRN Administration Nausea And Vomiting Oxycodone/Acetaminophen 1 tab 05/30/19 18:07 Percocet 5/325 PO Q6H PRN Pain, Moderate (4-6) Sodium Chloride 10 ml 05/30/19 22:00 05/31/19 09:46 Sodium Chloride Flush Syringe 10 Ml IV 10 ml BID RITESH Administration Sodium Chloride 10 ml 05/30/19 19:40 Sodium Chloride Flush Syringe 10 Ml IV PRN PRN LINE FLUSH Nutrition/Malnutrition Assess - Dietary Evaluation Nutrition/Malnutrition Findings: Nutrition Notes Start: 05/31/19 11:22 Freq: Status: Active Protocol: Document 05/31/19 11:22 LM (Rec: 05/31/19 11:26 LM [id number]) Nutrition Notes Initial or Follow up Brief Note Current Diagnosis Diabetes Other Pertinent Diagnosis DKA Current Diet NPO Subjective/Other Information Attempted to give DM education but pt was not speaking at time of visit. Nutrition Intervention Follow-Up By: 06/01/19 Additional Comments F/U for DM education
[2019-05-31] MEDS: HumuLIN R SUB-Q SCH ×3 (17:10→22:29)
[2019-05-31] MEDS: PERCOCET 5/325 PO PRN (17:39)
[2019-05-31] MEDS: LOVENOX SUB-Q SCH (21:21)
[2019-06-01] MEDS: REGLAN IV PRN ×2 (04:11→10:40)
[2019-06-01] MEDS: DILAUDID IV PRN ×2 (04:11→08:31)
[2019-06-01] MEDS: ZOFRAN IV PRN ×3 (08:33→21:34)
[2019-06-01] MEDS: HumuLIN R SUB-Q SCH ×4 (09:04→23:10)
[2019-06-01] MEDS ORDERED: LANTUS SUB-Q SCH (10:00)
[2019-06-01] MEDS: PROTONIX PO SCH (10:40)
[2019-06-01] MEDS: SODIUM CHLORIDE FLUSH SYRINGE 10 ML IV SCH ×2 (10:40→21:41)
--- NOTE | 2019-06-01 14:03 | Progress Note ---
Assessment and Plan Assessment and plan: DKA. Resolved. Anion gap is closed and patient transitioned to long-acting insulin home regimen. Skeleton with the self injection and she was on. Start Novolin 70/30 twice a day Hyperthyroidism, new diagnosis She has tachycardia and labs show decreased TSH and increased free T4. She denies any previous history of hyperthyroidism. Start Inderal, Tapazole To see Endocrinology as outpatient Hyperkalemia. Resolved. Hyponatremia. Etiology secondary to hyperglycemia. Follow-up BMP. Hopefully dc home tomorrow History Interval history: Palpitations Epigastric pain Hospitalist Physical - Physical exam Narrative exam: Gen: Not in acute distress, lying in bed HEENT: Normocephalic, atraumatic Neck: supple, no JVD Heart: S1 and S2 reg, tachy, no murmurs, rubs or gallop Lungs: Clear to auscultation, no rhonchi, no wheeze Abd: soft, mild epigastric tender, no rebound, non distended, normal BS, Ext: No edema, no clubbing, no cyanosis Neuro: Awake, alert, oriented X 3, no focal neurological signs - Constitutional Vitals: Temp Pulse Resp BP Pulse Ox 99.1 F 114 H 20 122/76 98 06/01/19 05:15 06/01/19 05:15 06/01/19 05:15 06/01/19 05:15 06/01/19 10:00 General appearance: Present: no acute distress, well-nourished Results - Labs CBC & Chem 7: 05/30/19 16:08 05/31/19 11:45 Labs: Laboratory Last Values WBC 6.2 K/mm3 (4.5-11.0) 05/30/19 16:08 RBC 3.85 M/mm3 (3.65-5.03) 05/30/19 16:08 Hgb 10.8 gm/dl (10.1-14.3) 05/30/19 16:08 Hct 32.2 % (30.3-42.9) 05/30/19 16:08 MCV 84 fl (79-97) 05/30/19 16:08 MCH 28 pg (28-32) 05/30/19 16:08 MCHC 33 % (30-34) 05/30/19 16:08 RDW 13.4 % (13.2-15.2) 05/30/19 16:08 Plt Count 174 K/mm3 (140-440) 05/30/19 16:08 Lymph % (Auto) 13.1 % (13.4-35.0) L 05/30/19 16:08 [place] % (Auto) 3.9 % (0.0-7.3) 05/30/19 16:08 Eos % (Auto) 0.2 % (0.0-4.3) 05/30/19 16:08 Baso % (Auto) 0.9 % (0.0-1.8) 05/30/19 16:08 Lymph # 0.8 K/mm3 (1.2-5.4) L 05/30/19 16:08 [place] # 0.2 K/mm3 (0.0-0.8) 05/30/19 16:08 Eos # 0.0 K/mm3 (0.0-0.4) 05/30/19 16:08 Baso # 0.1 K/mm3 (0.0-0.1) 05/30/19 16:08 Seg Neutrophils % 81.9 % (40.0-70.0) H 05/30/19 16:08 Seg Neutrophils # 5.1 K/mm3 (1.8-7.7) 05/30/19 16:08 PT 14.2 Sec. (12.2-14.9) 05/30/19 16:08 INR 1.13 (0.87-1.13) 05/30/19 16:08 APTT 22.4 Sec. (24.2-36.6) L 05/30/19 16:08 VBG pH 7.304 (7.320-7.420) L 05/30/19 16:08 Sodium 140 mmol/L (137-145) 05/31/19 11:45 Potassium 4.0 mmol/L (3.6-5.0) 05/31/19 11:45 Chloride 109.8 mmol/L (98-107) H 05/31/19 11:45 Carbon Dioxide 20 mmol/L (22-30) L 05/31/19 11:45 14 mmol/L 05/31/19 11:45 BUN 15 mg/dL (7-17) 05/31/19 11:45 0.7 mg/dL (0.7-1.2) 05/31/19 11:45 Estimated GFR > 60 ml/min 05/31/19 11:45 21 % 05/31/19 11:45 Glucose 165 mg/dL (65-100) H 05/31/19 11:45 POC Glucose 264 (70-105) H 06/01/19 12:12 10.7 % (4-6) H 05/30/19 16:08 Negative (Negative) 05/30/19 16:08 Calcium 8.9 mg/dL (8.4-10.2) 05/31/19 11:45 Phosphorus 4.90 mg/dL (2.5-4.5) H 05/30/19 19:36 Magnesium 1.70 mg/dL (1.7-2.3) 05/30/19 19:36 0.20 mg/dL (0.1-1.2) 05/31/19 04:52 < 0.2 mg/dL (0-0.2) 05/30/19 16:08 0.3 mg/dL 05/30/19 16:08 AST 13 units/L (5-40) 05/31/19 04:52 ALT 9 units/L (7-56) 05/31/19 04:52 82 units/L (35-129) 05/31/19 04:52 96 units/L (30-135) 05/30/19 16:08 CK-MB (CK-2) 1.7 ng/mL (0.0-4.0) 05/30/19 16:08 CK-MB (CK-2) Rel Index 1.7 (0-4) 05/30/19 16:08 6.3 g/dL (6.3-8.2) 05/31/19 04:52 3.1 g/dL (3.9-5) L 05/31/19 04:52 1.0 % 05/31/19 04:52 Free T4 2.48 ng/dL (0.76-1.46) H 06/01/19 12:58 Colorless (Yellow) 05/30/19 17:06 Clear (Clear) 05/30/19 17:06 5.0 (5.0-7.0) 05/30/19 17:06 Ur Specific [place] 1.023 (1.003-1.030) 05/30/19 17:06 <15 mg/dl mg/dL (Negative) 05/30/19 17:06 >=500 mg/dL (Negative) 05/30/19 17:06 80 mg/dL (Negative) 05/30/19 17:06 Mod (Negative) 05/30/19 17:06 Neg (Negative) 05/30/19 17:06 Neg (Negative) 05/30/19 17:06 < 2.0 mg/dL (<2.0) 05/30/19 17:06 Ur Leukocyte Esterase Neg (Negative) 05/30/19 17:06 1.0 /HPF (0.0-6.0) 05/30/19 17:06 4.0 /HPF (0.0-6.0) 05/30/19 17:06 U Epithel Cells (Auto) < 1.0 /HPF (0-13.0) 05/30/19 17:06 Few /HPF 05/30/19 17:06 23.8 mg/dL (0.1-20.0) H 05/30/19 18:07 < 1.2 mg/dL (0.1-34.0) 05/30/19 18:07 Microalb/Creat Ratio 50.4 ug/mg 05/30/19 18:07 Urine HCG, Qual Negative (Negative) 05/30/19 17:06 Presumptive negative 05/30/19 17:06 Presumptive negative 05/30/19 17:06 Ur Barbiturates Screen Presumptive negative 05/30/19 17:06 Ur Phencyclidine Scrn Presumptive negative 05/30/19 17:06 Ur Amphetamines Screen Presumptive negative 05/30/19 17:06 U Benzodiazepines Scrn Presumptive negative 05/30/19 17:06 Presumptive negative 05/30/19 17:06 U Marijuana (THC) Screen Presumptive negative 05/30/19 17:06 Disclamer 05/30/19 17:06 Active Medications - Current Medications Current Medications: Generic Name Dose Route Start Last Admin Trade Name Freq PRN Reason Stop Dose Admin Acetaminophen 650 mg 05/30/19 18:07 Tylenol PO Q4H PRN Pain MILD(1-3)/Fever >100.5/ABRAMS Dextrose 50 ml 05/31/19 14:14 D50w (25gm) Syringe IV PRN PRN Hypoglycemia Enoxaparin Sodium 40 mg 05/30/19 22:00 05/31/19 21:21 Lovenox SUB-Q 40 mg QDAY@2200 RITESH Administration Hydralazine HCl 10 mg 05/31/19 22:03 Apresoline IV Q4H PRN Blood Pressure Sodium Chloride 1,000 mls @ 75 mls/hr 05/31/19 15:00 05/31/19 21:21 Nacl 0.9% 1000 Ml IV 75 mls/hr DIRECT RITESH Administration Insulin Glargine 58 units 06/01/19 10:00 06/01/19 10:33 Lantus SUB-Q Not Given QAM RITESH Insulin Human Regular 0 units 05/31/19 16:30 06/01/19 13:21 Humulin R SUB-Q 4 units ACHS RITESH Administration Protocol Metoclopramide HCl 10 mg 05/30/19 19:40 06/01/19 10:40 Reglan IV 10 mg Q6H PRN Administration Nausea And Vomiting Ondansetron HCl 4 mg 05/30/19 18:07 06/01/19 08:33 Zofran IV 4 mg Q8H PRN Administration Nausea And Vomiting Oxycodone/Acetaminophen 1 tab 05/30/19 18:07 05/31/19 17:39 Percocet 5/325 PO 1 tab Q6H PRN Administration Pain, Moderate (4-6) Pantoprazole Sodium 40 mg 06/01/19 10:00 06/01/19 10:40 Protonix PO 40 mg QDAY RITESH Administration Sodium Chloride 10 ml 05/30/19 22:00 06/01/19 10:40 Sodium Chloride Flush Syringe 10 Ml IV 10 ml BID RITESH Administration Sodium Chloride 10 ml 05/30/19 19:40 Sodium Chloride Flush Syringe 10 Ml IV PRN PRN LINE FLUSH Nutrition/Malnutrition Assess - Dietary Evaluation Nutrition/Malnutrition Findings: Nutrition Notes Start: 05/31/19 11:22 Freq: Status: Active Protocol: Document 05/31/19 11:22 LM (Rec: 05/31/19 11:26 LM [id number]) Nutrition Notes Initial or Follow up Brief Note Current Diagnosis Diabetes Other Pertinent Diagnosis DKA Current Diet NPO Subjective/Other Information Attempted to give DM education but pt was not speaking at time of visit. Nutrition Intervention Follow-Up By: 06/01/19 Additional Comments F/U for DM education
--- NOTE | 2019-06-01 14:09 | Progress Note ---
Assessment and Plan Patient alert and awake. Patient is on room air. O2 saturation 98%. No acute respiratory distress. Patient running low grade temperature. No leukocytosis. Patient said she has a slight cough. - Patient Problems (1) DKA (diabetic ketoacidoses) Current Visit: Yes Status: Acute Qualifiers: Diabetes mellitus type: type 1 Diabetes mellitus complication detail: without coma Qualified Code(s): E10.10 - Type 1 diabetes mellitus with ketoacidosis without coma Plan to address problem: Patient's anion gap has improved. Management as per primary care. (2) Malnutrition Current Visit: Yes Status: Chronic Qualifiers: Protein-calorie malnutrition severity: mild Plan to address problem: Management as per primary care. (3) Abdominal pain Current Visit: No Status: Acute Qualifiers: Abdominal location: right lower quadrant Qualified Code(s): R10.31 - Right lower quadrant pain Plan to address problem: Management as per primary care. (4) Nausea & vomiting Current Visit: No Status: Acute Qualifiers: Vomiting type: unspecified Vomiting Intractability: non-intractable Qualified Code(s): R11.2 - Nausea with vomiting, unspecified Plan to address problem: No vomiting today. Obtaining Chest XRAY to rule out any aspiration. Subjective Date of service: 06/01/19 Interval history: Patient alert and awake. Patient is on room air. O2 saturation 98%. No acute respiratory distress. Patient running low grade temperature. No leukocytosis. Patient said she has a slight cough. Objective Vital Signs - 12hr 06/01/19 06/01/19 06/01/19 04:11 05:15 10:00 Temperature 99.1 F Pulse Rate 114 H Respiratory 18 20 Rate Blood Pressure 122/76 [Right] O2 Sat by Pulse 98 98 Oximetry Constitutional: no acute distress, alert Eyes: non-icteric ENT: oropharynx moist Neck: supple Effort: normal Ascultation: Bilateral: diminished breath sounds Cardiovascular: other (regular rate. Tachycardic.) Gastrointestinal: normoactive bowel sounds Integumentary: normal Extremities: no cyanosis Neurologic: normal mental status, non-focal exam Psychiatric: mood appropriate CBC and BMP: 05/30/19 16:08 05/31/19 11:45 ABG, PT/INR, D-dimer: PT/INR, D-dimer PT 14.2 Sec. (12.2-14.9) 05/30/19 16:08 INR 1.13 (0.87-1.13) 05/30/19 16:08 Abnormal lab findings: Abnormal Labs 05/30/19 05/30/19 05/30/19 16:07 16:08 16:08 Lymph % (Auto) 13.1 L Lymph # 0.8 L Seg Neutrophils % 81.9 H APTT 22.4 L VBG pH Sodium Potassium Chloride Carbon Dioxide BUN Glucose POC Glucose > 500 H Hemoglobin A1c Phosphorus Albumin Free T4 Urine Creatinine 05/30/19 05/30/19 05/30/19 16:08 16:08 16:08 Lymph % (Auto) Lymph # Seg Neutrophils % APTT VBG pH 7.304 L Sodium 130 L D Potassium 5.4 H D Chloride 92.0 L Carbon Dioxide 17 L BUN 19 H Glucose 598 H* POC Glucose Hemoglobin A1c 10.7 H Phosphorus Albumin 3.5 L Free T4 Urine Creatinine 05/30/19 05/30/19 05/30/19 17:16 17:16 18:07 Lymph % (Auto) Lymph # Seg Neutrophils % APTT VBG pH Sodium 131 L Potassium 5.1 H Chloride 91.8 L Carbon Dioxide 15 L BUN 19 H Glucose 579 H* POC Glucose Hemoglobin A1c Phosphorus 4.60 H Albumin Free T4 Urine Creatinine 23.8 H 05/30/19 05/30/19 05/30/19 19:36 19:36 19:37 Lymph % (Auto) Lymph # Seg Neutrophils % APTT VBG pH Sodium 133 L Potassium 6.2 H* D Chloride 96.8 L Carbon Dioxide 13 L BUN 20 H Glucose 566 H* POC Glucose 483 H Hemoglobin A1c Phosphorus 4.90 H Albumin Free T4 Urine Creatinine 05/30/19 05/30/19 05/30/19 20:52 22:08 22:37 Lymph % (Auto) Lymph # Seg Neutrophils % APTT VBG pH Sodium 135 L Potassium 5.5 H Chloride Carbon Dioxide 10 L BUN 22 H Glucose 541 H* POC Glucose > 500 H > 500 H Hemoglobin A1c Phosphorus Albumin Free T4 Urine Creatinine 05/30/19 05/31/19 05/31/19 23:11 00:05 01:23 Lymph % (Auto) Lymph # Seg Neutrophils % APTT VBG pH Sodium Potassium Chloride Carbon Dioxide BUN Glucose POC Glucose 490 H > 500 H 388 H Hemoglobin A1c Phosphorus Albumin Free T4 Urine Creatinine 05/31/19 05/31/19 05/31/19 02:03 03:05 04:13 Lymph % (Auto) Lymph # Seg Neutrophils % APTT VBG pH Sodium Potassium Chloride Carbon Dioxide BUN Glucose POC Glucose 336 H 270 H 230 H Hemoglobin A1c Phosphorus Albumin Free T4 Urine Creatinine 05/31/19 05/31/19 05/31/19 04:52 05:25 06:05 Lymph % (Auto) Lymph # Seg Neutrophils % APTT VBG pH Sodium Potassium Chloride 109.7 H Carbon Dioxide 18 L D BUN 18 H Glucose 197 H POC Glucose 209 H 186 H Hemoglobin A1c Phosphorus Albumin 3.1 L Free T4 Urine Creatinine 05/31/19 05/31/19 05/31/19 07:11 08:42 09:17 Lymph % (Auto) Lymph # Seg Neutrophils % APTT VBG pH Sodium Potassium Chloride 111.4 H Carbon Dioxide 19 L BUN Glucose 178 H POC Glucose 171 H 196 H Hemoglobin A1c Phosphorus Albumin Free T4 Urine Creatinine 05/31/19 05/31/19 05/31/19 09:50 10:23 10:38 Lymph % (Auto) Lymph # Seg Neutrophils % APTT VBG pH Sodium Potassium Chloride 111.0 H Carbon Dioxide 21 L BUN Glucose 183 H POC Glucose 210 H 193 H Hemoglobin A1c Phosphorus Albumin Free T4 Urine Creatinine 05/31/19 05/31/19 05/31/19 11:45 13:24 14:44 Lymph % (Auto) Lymph # Seg Neutrophils % APTT VBG pH Sodium Potassium Chloride 109.8 H Carbon Dioxide 20 L BUN Glucose 165 H POC Glucose 155 H 142 H Hemoglobin A1c Phosphorus Albumin Free T4 Urine Creatinine 05/31/19 05/31/19 06/01/19 17:32 21:56 08:12 Lymph % (Auto) Lymph # Seg Neutrophils % APTT VBG pH Sodium Potassium Chloride Carbon Dioxide BUN Glucose POC Glucose 351 H 274 H 276 H Hemoglobin A1c Phosphorus Albumin Free T4 Urine Creatinine 06/01/19 06/01/19 12:12 12:58 Lymph % (Auto) Lymph # Seg Neutrophils % APTT VBG pH Sodium Potassium Chloride Carbon Dioxide BUN Glucose POC Glucose 264 H Hemoglobin A1c Phosphorus Albumin Free T4 2.48 H Urine Creatinine
[2019-06-01] MEDS: MORPHINE IV PRN ×2 (15:25→21:33)
[2019-06-01] MEDS: NACL 0.9% 1000 ML 1,000 ML IV SCH (15:26)
[2019-06-01] MEDS ORDERED: ASPIRIN PO STA (17:22)
[2019-06-01] MEDS: INDERAL PO SCH ×3 (17:38→21:40)
[2019-06-01 19:06] LABS: Creatine Kinase MB 1.1 ng/mL (0.0-4.0)
[2019-06-01] MEDS: LOVENOX SUB-Q SCH (21:41)
[2019-06-02] MEDS: PERCOCET 5/325 PO PRN (01:16)
[2019-06-02] MEDS: MORPHINE IV PRN ×4 (03:04→21:22)
[2019-06-02] MEDS: NACL 0.9% 1000 ML 1,000 ML IV SCH (04:59)
[2019-06-02] MEDS: REGLAN IV PRN ×2 (05:06→12:12)
[2019-06-02] MEDS: TAPAZOLE PO SCH ×3 (05:06→21:27)
[2019-06-02] MEDS: APRESOLINE IV PRN ×2 (05:44→10:29)
[2019-06-02] MEDS: HumuLIN R SUB-Q SCH ×3 (08:00→16:19)
[2019-06-02 08:11] LABS: BUN/Creatinine Ratio 12; Blood Urea Nitrogen 6 mg/dL (7-17); Calcium 8.8 mg/dL (8.4-10.2); Hemolysis Index 14
--- NOTE | 2019-06-02 08:24 | XRay Report ---
CHEST 2 VIEWS INDICATION: for possible aspiration. COMPARISON: None. FINDINGS: Support devices: None. Heart: Normal. Pulmonary vascularity: Normal. Lungs/pleura: Normally expanded and clear lungs. No pleural effusion. No pneumothorax. Additional findings: None. IMPRESSION: Normal chest. No evidence of aspiration pneumonia. Signer Name: Justus Ayala MD Signed: 06/02/2019 8:20 AM Workstation Name: [id number]
[2019-06-02] MEDS ORDERED: ALUM-MAG HYDROX-SIMETH 200-200-20MG/5ML PO PRN (09:07)
--- NOTE | 2019-06-02 09:13 | Ultrasound Report ---
THYROID ULTRASOUND HISTORY: Hyperthyroidism COMPARISON: None TECHNIQUE: Routine sonographic images were obtained of the thyroid. FINDINGS: Right thyroid lobe: Heterogeneous in echotexture with increased vascularity. No discrete nodule. The right thyroid lobe measures 5.2 x 1.7 x 1.3 cm. Isthmus: Heterogeneous in echotexture with increased vascularity. No discrete nodule. The isthmus measures 0.5 cm. Left thyroid lobe: Heterogeneous in echotexture with increased vascularity. No discrete nodule. The left thyroid lobe measures 5.1 x 1.7 x 1.6 cm. Additional Findings: None. IMPRESSION: 1. Heterogeneous thyroid with increased vascularity suggesting underlying thyroiditis, possibly Grave s' disease. 2. No focal thyroid nodule. Signer Name: Drea Arce MD Signed: 06/02/2019 9:09 AM Workstation Name: [id number]
[2019-06-02] MEDS: SODIUM CHLORIDE FLUSH SYRINGE 10 ML IV SCH (09:21)
[2019-06-02] MEDS ORDERED: ECOTRIN PO SCH (10:00)
[2019-06-02] MEDS: INDERAL PO SCH ×3 (10:00→21:55)
[2019-06-02] MEDS: K-DUR PO SCH ×2 (10:12→17:07)
[2019-06-02] MEDS: ZOFRAN IV PRN ×2 (10:12→16:20)
[2019-06-02] MEDS: PROTONIX PO SCH (10:13)
--- NOTE | 2019-06-02 11:10 | Progress Note ---
Assessment and Plan Patient alert and awake. Patient is on room air. O2 saturation 99%. No acute respiratory distress. Patient running low grade temperature. No leukocytosis. Patient denied cough to day.Chest xray reported normal chest. No evidence of aspiration pneumonia. - Patient Problems (1) DKA (diabetic ketoacidoses) Current Visit: Yes Status: Acute Qualifiers: Diabetes mellitus type: type 1 Diabetes mellitus complication detail: without coma Qualified Code(s): E10.10 - Type 1 diabetes mellitus with ketoacidosis without coma Plan to address problem: Patient's anion gap has improved. Management as per primary care. (2) Malnutrition Current Visit: Yes Status: Chronic Qualifiers: Protein-calorie malnutrition severity: mild Plan to address problem: Management as per primary care. (3) Abdominal pain Current Visit: No Status: Acute Qualifiers: Abdominal location: right lower quadrant Qualified Code(s): R10.31 - Right lower quadrant pain Plan to address problem: Management as per primary care. (4) Nausea & vomiting Current Visit: No Status: Acute Qualifiers: Vomiting type: unspecified Vomiting Intractability: non-intractable Qu alified Code(s): R11.2 - Nausea with vomiting, unspecified Plan to address problem: No vomiting today. Chest ray reported. No evidence of aspiration pneumonia. Subjective Date of service: 06/02/19 Interval history: Patient alert and awake. Patient is on room air. O2 saturation 99%. No acute respiratory distress. Patient running low grade temperature. No leukocytosis. Patient denied cough to day.Chest xray reported normal chest. No evidence of aspiration pneumonia. Objective Vital Signs - 12hr 06/02/19 06/02/19 06/02/19 05:15 05:44 10:10 Temperature 98.3 F 99.0 F Pulse Rate 103 H 103 H 107 H Respiratory 16 18 Rate Blood Pressure 166/102 166/102 175/100 O2 Sat by Pulse 100 99 Oximetry 06/02/19 10:29 Temperature Pulse Rate 108 H Respiratory Rate Blood Pressure 175/100 O2 Sat by Pulse Oximetry Constitutional: no acute distress, alert Eyes: non-icteric ENT: oropharynx moist Neck: supple Effort: normal Ascultation: Bilateral: diminished breath sounds Cardiovascular: other (regular rate. Tachycardic.) Gastrointestinal: normoactive bowel sounds Integumentary: normal Extremities: no cyanosis Neurologic: normal mental status, non-focal exam Psychiatric: mood appropriate CBC and BMP: 05/30/19 16:08 06/02/19 07:45 ABG, PT/INR, D-dimer: PT/INR, D-dimer PT 14.2 Sec. (12.2-14.9) 05/30/19 16:08 INR 1.13 (0.87-1.13) 05/30/19 16:08 Abnormal lab findings: Abnormal Labs 05/30/19 05/30/19 05/30/19 16:07 16:08 16:08 Lymph % (Auto) 13.1 L Lymph # 0.8 L Seg Neutrophils % 81.9 H APTT 22.4 L VBG pH Sodium Potassium Chloride Carbon Dioxide BUN Creatinine Glucose POC Glucose > 500 H Hemoglobin A1c Phosphorus Albumin TSH Free T4 Urine Creatinine 05/30/19 05/30/19 05/30/19 16:08 16:08 16:08 Lymph % (Auto) Lymph # Seg Neutrophils % APTT VBG pH 7.304 L Sodium 130 L D Potassium 5.4 H D Chloride 92.0 L Carbon Dioxide 17 L BUN 19 H Creatinine Glucose 598 H* POC Glucose Hemoglobin A1c 10.7 H Phosphorus Albumin 3.5 L TSH Free T4 Urine Creatinine 05/30/19 05/30/19 05/30/19 17:16 17:16 18:07 Lymph % (Auto) Lymph # Seg Neutrophils % APTT VBG pH Sodium 131 L Potassium 5.1 H Chloride 91.8 L Carbon Dioxide 15 L BUN 19 H Creatinine Glucose 579 H* POC Glucose Hemoglobin A1c Phosphorus 4.60 H Albumin TSH Free T4 Urine Creatinine 23.8 H 05/30/19 05/30/19 05/30/19 19:36 19:36 19:37 Lymph % (Auto) Lymph # Seg Neutrophils % APTT VBG pH Sodium 133 L Potassium 6.2 H* D Chloride 96.8 L Carbon Dioxide 13 L BUN 20 H Creatinine Glucose 566 H* POC Glucose 483 H Hemoglobin A1c Phosphorus 4.90 H Albumin TSH Free T4 Urine Creatinine 05/30/19 05/30/19 05/30/19 20:52 22:08 22:37 Lymph % (Auto) Lymph # Seg Neutrophils % APTT VBG pH Sodium 135 L Potassium 5.5 H Chloride Carbon Dioxide 10 L BUN 22 H Creatinine Glucose 541 H* POC Glucose > 500 H > 500 H Hemoglobin A1c Phosphorus Albumin TSH Free T4 Urine Creatinine 05/30/19 05/31/19 05/31/19 23:11 00:05 01:23 Lymph % (Auto) Lymph # Seg Neutrophils % APTT VBG pH Sodium Potassium Chloride Carbon Dioxide BUN Creatinine Glucose POC Glucose 490 H > 500 H 388 H Hemoglobin A1c Phosphorus Albumin TSH Free T4 Urine Creatinine 05/31/19 05/31/19 05/31/19 02:03 03:05 04:13 Lymph % (Auto) Lymph # Seg Neutrophils % APTT VBG pH Sodium Potassium Chloride Carbon Dioxide BUN Creatinine Glucose POC Glucose 336 H 270 H 230 H Hemoglobin A1c Phosphorus Albumin TSH Free T4 Urine Creatinine 05/31/19 05/31/19 05/31/19 04:52 05:25 06:05 Lymph % (Auto) Lymph # Seg Neutrophils % APTT VBG pH Sodium Potassium Chloride 109.7 H Carbon Dioxide 18 L D BUN 18 H Creatinine Glucose 197 H POC Glucose 209 H 186 H Hemoglobin A1c Phosphorus Albumin 3.1 L TSH Free T4 Urine Creatinine 05/31/19 05/31/19 05/31/19 07:11 08:42 09:17 Lymph % (Auto) Lymph # Seg Neutrophils % APTT VBG pH Sodium Potassium Chloride 111.4 H Carbon Dioxide 19 L BUN Creatinine Glucose 178 H POC Glucose 171 H 196 H Hemoglobin A1c Phosphorus Albumin TSH Free T4 Urine Creatinine 05/31/19 05/31/19 05/31/19 09:50 10:23 10:38 Lymph % (Auto) Lymph # Seg Neutrophils % APTT VBG pH Sodium Potassium Chloride 111.0 H Carbon Dioxide 21 L BUN Creatinine Glucose 183 H POC Glucose 210 H 193 H Hemoglobin A1c Phosphorus Albumin TSH Free T4 Urine Creatinine 05/31/19 05/31/19 05/31/19 11:45 13:24 14:44 Lymph % (Auto) Lymph # Seg Neutrophils % APTT VBG pH Sodium Potassium Chloride 109.8 H Carbon Dioxide 20 L BUN Creatinine Glucose 165 H POC Glucose 155 H 142 H Hemoglobin A1c Phosphorus Albumin TSH Free T4 Urine Creatinine 05/31/19 05/31/19 06/01/19 17:32 21:56 08:12 Lymph % (Auto) Lymph # Seg Neutrophils % APTT VBG pH Sodium Potassium Chloride Carbon Dioxide BUN Creatinine Glucose POC Glucose 351 H 274 H 276 H Hemoglobin A1c Phosphorus Albumin TSH Free T4 Urine Creatinine 06/01/19 06/01/19 06/01/19 12:12 12:58 12:58 Lymph % (Auto) Lymph # Seg Neutrophils % APTT VBG pH Sodium Potassium Chloride Carbon Dioxide BUN Creatinine Glucose POC Glucose 264 H Hemoglobin A1c Phosphorus Albumin TSH < 0.005 L Free T4 2.48 H Urine Creatinine 06/01/19 06/01/19 06/02/19 16:50 21:28 07:45 Lymph % (Auto) Lymph # Seg Neutrophils % APTT VBG pH Sodium 136 L Potassium 3.2 L Chloride Carbon Dioxide 21 L BUN 6 L Creatinine 0.5 L Glucose 125 H POC Glucose 236 H 140 H Hemoglobin A1c Phosphorus Albumin TSH Free T4 Urine Creatinine Chest x-ray: report reviewed (Normal chest. No evidence of aspiration pneumonia.), image reviewed
[2019-06-02] MEDS: APRESOLINE PO SCH ×4 (12:09→21:27)
--- NOTE | 2019-06-02 16:28 | Progress Note ---
Assessment and Plan Assessment and plan: DKA. Resolved. Anion gap is closed and patient transitioned to long-acting insulin home regimen. Skeleton with the self injection and she was on. Continue Novolin 70/30 twice a day Hyperthyroidism, new diagnosis She has tachycardia and labs show decreased TSH and increased free T4. She denies any previous history of hyperthyroidism. Start Inderal, Tapazole To see Endocrinology as outpatient Still tachycardic. Not able to tolerate meds because of nausea Hyperkalemia. Resolved. Hyponatremia. Etiology secondary to hyperglycemia. Follow-up BMP. Hopefully dc home tomorrow History Interval history: Palpitations Epigastric pain nausea Hospitalist Physical - Physical exam Narrative exam: Gen: Not in acute distress, lying in bed HEENT: Normocephalic, atraumatic Neck: supple, no JVD Heart: S1 and S2 reg, tachy, no murmurs, rubs or gallop Lungs: Clear to auscultation, no rhonchi, no wheeze Abd: soft, mild epigastric tender, no rebound, non distended, normal BS, Ext: No edema, no clubbing, no cyanosis Neuro: Awake, alert, oriented X 3, no focal neurological signs - Constitutional Vitals: Temp Pulse Resp BP Pulse Ox 99.0 F 115 H 18 154/88 99 06/02/19 10:10 06/02/19 12:05 06/02/19 10:10 06/02/19 12:05 06/02/19 10:10 General appearance: Present: no acute distress, well-nourished Results - Labs CBC & Chem 7: 05/30/19 16:08 06/02/19 07:45 Labs: Laboratory Last Values WBC 6.2 K/mm3 (4.5-11.0) 05/30/19 16:08 RBC 3.85 M/mm3 (3.65-5.03) 05/30/19 16:08 Hgb 10.8 gm/dl (10.1-14.3) 05/30/19 16:08 Hct 32.2 % (30.3-42.9) 05/30/19 16:08 MCV 84 fl (79-97) 05/30/19 16:08 MCH 28 pg (28-32) 05/30/19 16:08 MCHC 33 % (30-34) 05/30/19 16:08 RDW 13.4 % (13.2-15.2) 05/30/19 16:08 Plt Count 174 K/mm3 (140-440) 05/30/19 16:08 Lymph % (Auto) 13.1 % (13.4-35.0) L 05/30/19 16:08 [place] % (Auto) 3.9 % (0.0-7.3) 05/30/19 16:08 Eos % (Auto) 0.2 % (0.0-4.3) 05/30/19 16:08 Baso % (Auto) 0.9 % (0.0-1.8) 05/30/19 16:08 Lymph # 0.8 K/mm3 (1.2-5.4) L 05/30/19 16:08 [place] # 0.2 K/mm3 (0.0-0.8) 05/30/19 16:08 Eos # 0.0 K/mm3 (0.0-0.4) 05/30/19 16:08 Baso # 0.1 K/mm3 (0.0-0.1) 05/30/19 16:08 Seg Neutrophils % 81.9 % (40.0-70.0) H 05/30/19 16:08 Seg Neutrophils # 5.1 K/mm3 (1.8-7.7) 05/30/19 16:08 PT 14.2 Sec. (12.2-14.9) 05/30/19 16:08 INR 1.13 (0.87-1.13) 05/30/19 16:08 APTT 22.4 Sec. (24.2-36.6) L 05/30/19 16:08 VBG pH 7.304 (7.320-7.420) L 05/30/19 16:08 Sodium 136 mmol/L (137-145) L 06/02/19 07:45 Potassium 3.2 mmol/L (3.6-5.0) L 06/02/19 07:45 Chloride 103.2 mmol/L (98-107) 06/02/19 07:45 Carbon Dioxide 21 mmol/L (22-30) L 06/02/19 07:45 15 mmol/L 06/02/19 07:45 BUN 6 mg/dL (7-17) L 06/02/19 07:45 0.5 mg/dL (0.7-1.2) L 06/02/19 07:45 Estimated GFR > 60 ml/min 06/02/19 07:45 12 % 06/02/19 07:45 Glucose 125 mg/dL (65-100) H 06/02/19 07:45 POC Glucose 129 (70-105) H 06/02/19 16:11 10.7 % (4-6) H 05/30/19 16:08 Negative (Negative) 05/30/19 16:08 Calcium 8.8 mg/dL (8.4-10.2) 06/02/19 07:45 Phosphorus 4.90 mg/dL (2.5-4.5) H 05/30/19 19:36 Magnesium 1.70 mg/dL (1.7-2.3) 05/30/19 19:36 0.20 mg/dL (0.1-1.2) 05/31/19 04:52 < 0.2 mg/dL (0-0.2) 05/30/19 16:08 0.3 mg/dL 05/30/19 16:08 AST 13 units/L (5-40) 05/31/19 04:52 ALT 9 units/L (7-56) 05/31/19 04:52 82 units/L (35-129) 05/31/19 04:52 73 units/L (30-135) 06/02/19 07:45 CK-MB (CK-2) 1.0 ng/mL (0.0-4.0) 06/02/19 07:45 CK-MB (CK-2) Rel Index 1.3 (0-4) 06/02/19 07:45 < 0.010 ng/mL (0.00-0.029) 06/02/19 07:45 6.3 g/dL (6.3-8.2) 05/31/19 04:52 3.1 g/dL (3.9-5) L 05/31/19 04:52 1.0 % 05/31/19 04:52 TSH < 0.005 mlU/mL (0.270-4.200) L 06/01/19 12:58 Free T4 2.48 ng/dL (0.76-1.46) H 06/01/19 12:58 Colorless (Yellow) 05/30/19 17:06 Clear (Clear) 05/30/19 17:06 5.0 (5.0-7.0) 05/30/19 17:06 Ur Specific [place] 1.023 (1.003-1.030) 05/30/19 17:06 <15 mg/dl mg/dL (Negative) 05/30/19 17:06 >=500 mg/dL (Negative) 05/30/19 17:06 80 mg/dL (Negative) 05/30/19 17:06 Mod (Negative) 05/30/19 17:06 Neg (Negative) 05/30/19 17:06 Neg (Negative) 05/30/19 17:06 < 2.0 mg/dL (<2.0) 05/30/19 17:06 Ur Leukocyte Esterase Neg (Negative) 05/30/19 17:06 1.0 /HPF (0.0-6.0) 05/30/19 17:06 4.0 /HPF (0.0-6.0) 05/30/19 17:06 U Epithel Cells (Auto) < 1.0 /HPF (0-13.0) 05/30/19 17:06 Few /HPF 05/30/19 17:06 23.8 mg/dL (0.1-20.0) H 05/30/19 18:07 < 1.2 mg/dL (0.1-34.0) 05/30/19 18:07 Microalb/Creat Ratio 50.4 ug/mg 05/30/19 18:07 Urine HCG, Qual Negative (Negative) 05/30/19 17:06 Presumptive negative 05/30/19 17:06 Presumptive negative 05/30/19 17:06 Ur Barbiturates Screen Presumptive negative 05/30/19 17:06 Ur Phencyclidine Scrn Presumptive negative 05/30/19 17:06 Ur Amphetamines Screen Presumptive negative 05/30/19 17:06 U Benzodiazepines Scrn Presumptive negative 05/30/19 17:06 Presumptive negative 05/30/19 17:06 U Marijuana (THC) Screen Presumptive negative 05/30/19 17:06 Disclamer 05/30/19 17:06 Active Medications - Current Medications Current Medications: Generic Name Dose Route Start Last Admin Trade Name Freq PRN Reason Stop Dose Admin Acetaminophen 650 mg 05/30/19 18:07 Tylenol PO Q4H PRN Pain MILD(1-3)/Fever >100.5/ABRAMS Al Hydrox/Mg Hydrox/Simethicone 30 ml 06/02/19 09:07 Alum-Mag Hydrox-Simeth 945-874-66be/5ml PO Q4H PRN Indigestion Dextrose 50 ml 05/31/19 14:14 D50w (25gm) Syringe IV PRN PRN Hypoglycemia Enoxaparin Sodium 40 mg 05/30/19 22:00 06/01/19 21:41 Lovenox SUB-Q 40 mg QDAY@2200 RITESH Administration Hydralazine HCl 10 mg 05/31/19 22:03 06/02/19 10:29 Apresoline IV 10 mg Q4H PRN Administration Blood Pressure Hydralazine HCl 50 mg 06/02/19 12:30 06/02/19 16:24 Apresoline PO 50 mg Q8HR RITESH Administration Sodium Chloride 1,000 mls @ 75 mls/hr 05/31/19 15:00 06/02/19 04:59 Nacl 0.9% 1000 Ml IV 75 mls/hr DIRECT RITESH Administration Insulin Human Isoph/Insulin Regular 20 unit 06/01/19 17:00 06/02/19 09:20 Humulin 70/30 SUB-Q 20 unit BIDDIAB RITESH Administration Insulin Human Regular 0 units 05/31/19 16:30 06/02/19 16:19 Humulin R SUB-Q Not Given [facility] Protocol Methimazole 5 mg 06/02/19 06:00 06/02/19 05:06 Tapazole PO 5 mg Q8HR RITESH Administration Metoclopramide HCl 10 mg 05/30/19 19:40 06/02/19 12:12 Reglan IV 10 mg Q6H PRN Administration Nausea And Vomiting Metoclopramide HCl 10 mg 06/02/19 16:30 Reglan IV ACHS [facility] Morphine Sulfate 2 mg 06/01/19 15:13 06/02/19 15:40 Morphine IV 2 mg Q4H PRN Administration Pain, Moderate (4-6) Ondansetron HCl 4 mg 05/30/19 18:07 06/02/19 16:20 Zofran IV 4 mg Q8H PRN Administration Nausea And Vomiting Oxycodone/Acetaminophen 1 tab 05/30/19 18:07 06/02/19 01:16 Percocet 5/325 PO 1 tab Q6H PRN Administration Pain, Moderate (4-6) Pantoprazole Sodium 40 mg 06/01/19 10:00 06/02/19 10:13 Protonix PO 40 mg QDAY RITESH Administration Propranolol HCl 40 mg 06/02/19 08:00 06/02/19 10:00 Inderal PO Not Given Q8HR RITESH Sodium Chloride 10 ml 05/30/19 22:00 06/02/19 09:21 Sodium Chloride Flush Syringe 10 Ml IV 10 ml BID RITESH Administration Sodium Chloride 10 ml 05/30/19 19:40 06/02/19 05:06 Sodium Chloride Flush Syringe 10 Ml IV 10 ml PRN PRN Administration LINE FLUSH Nutrition/Malnutrition Assess - Dietary Evaluation Nutrition/Malnutrition Findings: Nutrition Notes Start: 05/31/19 11:22 Freq: Status: Active Protocol: Document 06/01/19 15:11 PHILL (Rec: 06/01/19 15:16 PHILL [email or web address]) Nutrition Notes Initial or Follow up Assessment Other Pertinent Diagnosis DKA Current Diet Consistent CHO Labs/Tests A1C 10.7 BG was 598 upon admission Pertinent Medications Reviewed Height 5 ft 6 in Weight 82.5 kg [place] Body Weight (kg) 59.09 BMI 29.3 Subjective/Other Information Pt reports no appetite at this time and is not tolerating any PO. She was diagnosed with DM in 2009; says she checks BS 4 times daily and takes medications as prescribed. Says she has been in DKA before. She denies need for DM diet education. GI Symptoms Nausea #1 Nutrition Diagnosis Inadequate oral intake Etiology DKA As Evidenced by Signs and Symptoms pt not tolerating PO intake at this time Is patient on ventilator? No Is Patient Ambulatory and/or Out of Bed Yes [facility] [ NUTR.[id number]] Calculation Used for Recommendations [place]-St Jeor Additional Notes Pro needs 0.8-1g/k-83g/ day Fluid needs 1ml/kcal Nutrition Intervention Change Diet Order: Continue current diet Goal #1 PO tolerance Goal #2 Improved BG control Goal #3 Adherence to CHO-controlled diet Anticipated Discharge Needs: CHO-controlled diet Follow-Up By: 06/03/19 Additional Comments F/U: PO tolerance, wt
[2019-06-02] MEDS: REGLAN IV SCH ×2 (17:07→21:28)
[2019-06-02] MEDS ORDERED: LOPRESSOR IV SCH (18:00)
[2019-06-02] MEDS: LOVENOX SUB-Q SCH (21:28)
[2019-06-03] MEDS: HumuLIN R SUB-Q SCH ×3 (00:01→10:37)
[2019-06-03] MEDS: PERCOCET 5/325 PO PRN ×2 (00:28→10:24)
[2019-06-03] MEDS: SODIUM CHLORIDE FLUSH SYRINGE 10 ML IV SCH ×2 (00:30→10:24)
[2019-06-03] MEDS: MORPHINE IV PRN (01:20)
[2019-06-03 05:33] VITALS: BP 156/93
[2019-06-03] MEDS: TAPAZOLE PO SCH (05:38)
[2019-06-03] MEDS: INDERAL PO SCH (05:39)
[2019-06-03] MEDS: APRESOLINE PO SCH (05:39)
[2019-06-03] MEDS: ZOFRAN IV PRN ×2 (05:46→10:23)
--- NOTE | 2019-06-03 08:17 | Discharge Summary ---
Providers - Providers Date of Admission: 05/30/19 17:17 Date of discharge: 06/03/19 Attending physician: KRISTI CRAIG 05/30/19 18:07 Consult to Dietitian/Nutrition [CONS] Routine Physician Instructions: Reason For Exam: Reason for Consult: Diet education Consult to Dietitian/Nutrition [CONS] Routine Physician Instructions: Reason For Exam: DKA Reason for Consult: Nutrition Recommendations Reason for Consult: Diet education 05/31/19 09:29 Consult to Physician [CONS] Routine Comment: Consulting Provider: KRYSTYNA FERNANDO Physician Instructions: critical care management of DKA Reason For Exam: critical care management DKA [facility] Condition: Fair Disposition: DC-01 TO HOME OR SELFCARE Exam - Constitutional Vitals: Temp Pulse Resp BP Pulse Ox 99.0 F 117 H 20 156/93 98 06/03/19 05:23 06/02/19 21:22 06/03/19 05:23 06/03/19 05:23 06/02/19 22:00 Plan Activity: advance as tolerated Diet: low fat, low cholesterol, low salt, diabetic Plan of Treatment: 1.Follow up with PCP or [facility] in 1 week. 2.Follow up with L[facility] Doffer in 2-3 days Assessment: 1.DKA 2.Hyperthyroidism Follow up with: NHI GARZAEDEN MD YOKO [Primary Care Provider] - 7 Days Prescriptions: Antacid [Alum-Mag Hydrox-Simeth [id number]/5Ml] 30 ml PO Q4H PRN #1 bottle PRN Reason: Indigestion Propranolol [Inderal] 40 mg PO Q8HR #90 tablet Insulin NPH/Regular [NovoLIN 70/30] 15 unit SUB-Q BIDDIAB #1 vial Pantoprazole [Protonix TAB] 40 mg PO QDAY #30 tablet methIMAzole [Tapazole] 5 mg PO Q8HR #90 tablet
[2019-06-03] MEDS: REGLAN IV SCH (10:23)
[2019-06-03] MEDS: PROTONIX PO SCH (10:24)
--- NOTE | 2019-06-04 16:24 | Consultation ---
PULMONARY/CRITICAL CARE CONSULTATION CONSULTING PHYSICIAN: Dr. Segundo. REASON FOR CONSULTATION: Diabetic ketoacidosis. CHIEF COMPLAINT AND HISTORY OF PRESENT ILLNESS: As follows: The patient is a 28-year-old female with past medical history significant for diagnosis of diabetes who came into the Emergency Room stating that she thinks she has been in DKA since a couple of days. She had been seen in the Emergency Room a few days earlier and had been ruled out of DKA. She did complain of some nausea and vomiting. She complained of some abdominal pain. She denied any fevers or chills. She admits to being noncompliant with her insulin intake at home. She denies any open wounds or sores on her body. She was evaluated in the Emergency Room and her lab work did come back consistent with DKA diagnosis. She was started on IV insulin drip and admitted to the Critical Care Unit. When I stopped by to see her, she was resting in bed, still complained of some abdominal discomfort. No fevers, no chills, but definitely was feeling better. This really is as much of the history of presentation as I have. PAST MEDICAL HISTORY: History of diabetes type 1. PAST SURGICAL HISTORY: None. MEDICATIONS: She was on at the time I stopped by to see her were reviewed. Pertinent medications included the following: She was on Tylenol 650 mg p.o. q. 4 hours p.r.n. mild fevers or pain, Lovenox 40 mg subcutaneous daily, Pepcid 20 mg IV b.i.d., p.r.n. Dilaudid 0.5 mg IV q.3 hours p.r.n. severe pain. IV insulin drip was going at 6 units per hour. Reglan 10 mg IV q. 6 hours p.r.n. nausea and vomiting, Zofran 4 mg IV q. 8 hours p.r.n. nausea and vomiting, Percocet 5/325 one tablet p.o. q. 6 hours p.r.n. moderate pain. ALLERGIES: No known drug allergies. She does have allergies to TOMATOES, nature of this allergy is unknown. DIET: Well-built lady. Denies acute weight loss or gain in the preceding few weeks to months. FAMILY AND SOCIAL HISTORY: Apparently lives in the community, describes herself as a never smoker. Denies alcohol or illicit drug use or abuse. FAMILY HISTORY: Otherwise, noncontributory. REVIEW OF SYSTEMS: No loss of consciousness. No new onset seizures. No new onset focal weakness. She denies any new blurry vision, eye pain or discharge. Denies any sore throat. Denies any cough or expectoration. Denies any palpitations. Denies any heat or cold intolerance. She had the abdominal pain. She had the nausea and vomiting. Denies any dysuria or hematuria. Denies any new rash on her body. Denies any periods of unexplained sadness and/or elation as may be consistent with clinical depression or keila. Denies easy bruising. Complete 13-system review of systems obtained. Pertinent positives and/or negatives as in body of the history above, otherwise noncontributory. PHYSICAL EXAMINATION: VITAL SIGNS: At presentation in the Emergency Room, she was afebrile, temperature 98.5 degrees Fahrenheit with a pulse of 126, respiratory rate of 10, blood pressure 166/101, O2 sats 100%, inspired oxygen concentration at that time was not recorded. When I stopped by to see her, O2 sats were 98% on room air. GENERAL: Again, well-built female, normocephalic, atraumatic, talking to me in mostly full sentences without significant respiratory distress. HEAD, EYES, EARS, NOSE AND THROAT: Anicteric, no conjunctival erythema. Oropharynx was dry. Oropharynx was a Mallampati #3 oropharynx. Grossly, no palpable lymph nodes in the supraclavicular or submandibular lymph node chains. No gross jugular venous distention. LUNGS: Auscultation of both lung vincent was unremarkable. Lungs were clear bilaterally. HEART: Heart sounds 1 and 2 were heard. They were regular in rate and rhythm at the time of my evaluation without overt rubs or murmurs. ABDOMEN: Soft, full, bowel sounds are positive, but hyperactive. She is mildly tender in particular in the epigastric area. No palpable hepatosplenomegaly. EXTREMITIES: Without overt digital clubbing or cyanosis. No pedal edema. Pedal pulses are 2+ bilaterally. BACK: Examination of the back does not reveal any spinal point tenderness. NEUROLOGIC: Pupils are equal, round, about 4 mm, reactive to light. Extraocular muscle movements are intact. She moves all 4 extremities spontaneously. SKIN: Normal turgor without overt cellulitis or rash. PSYCHIATRIC: Her mood is normal. Affect was appropriate. LABORATORY DATA: From my review were as follows: Admission white cell count 6200, hemoglobin 10.8, hematocrit 32.2 and platelet count 174. No manual differential. INR was 1.13. Venous blood gas showed a pH of 7.30. Serum sodium was 133, potassium 6.2, chloride 97, bicarbonate 13, BUN 20, creatinine 0.9, glucose was 566. Hemoglobin A1c was elevated at 10.7. Liver function test within normal limits. Albumin was slightly diminished at 3.5. Urinalysis was done, negative for leukocyte esterase and nitrites. She was spilling glucose. Urine drug screen was negative, presumptive negative. No microbiology studies for my review. No chest x-ray was done. ASSESSMENT: 1. Diabetic ketoacidosis. 2. Hyperkalemia at presentation. 3. Mild hyponatremia, likely due to the hyperglycemia. 4. Hypertension or uncontrolled blood pressures. PLAN: We will continue on the DKA protocol. The IV insulin therapy will be adjusted as necessary depending on her electrolytes and the correction of her anion gap as well as glucose levels. Better medication compliance has been counseled. Continued tobacco abstinence has been encouraged. We will transition her to oral intake, long-acting insulin, sliding scale insulin as soon as she gets off the IV insulin therapy. No acute indication for antibiotic therapy in my evaluation at this point. Hyperkalemia has resolved with correction of her DKA. Hyponatremia has improved. She is appropriately on GI and DVT prophylaxis. Flu and pneumonia vaccination will be addressed per protocol. Thank you very much for the consult, Dr. Segundo. We will watch her in the Intensive Care Unit until she is off IV insulin therapy. I have also counseled her on better medication compliance. We will make further recommendations as picture progresses/becomes clearer. JOB# [id number] SCARLETT/REGIS
== END 2019-06-03 11:10 | disposition home or self-care (01) | DRG 638 ==
LOC: ED 15:37 → CC1 17:17 → 3A 05-31 19:59
PROVIDERS: ADMIT Internal Medicine; ATTEND Internal Medicine
DX: E10.10 Type 1 diabetes mellitus with ketoacidosis without coma (principal); E87.1 Hypo-osmolality and hyponatremia; E44.1 Mild protein-calorie malnutrition; E87.5 Hyperkalemia; E05.90 Thyrotoxicosis, unspecified without thyrotoxic crisis or storm; E86.0 Dehydration; Z68.29 Body mass index [BMI] 29.0-29.9, adult; R11.2 Nausea with vomiting, unspecified
CPT/HCPCS: 36415; 71046; 76536; 80048; 80053; 80076; 80307; 81001; 81025; 82010; 82043; 82550; 82553; 82805; 82962; 83036; 83735; 84100; 84439; 84443; 84484; 85025; 85610; 85730; 93005; 93010; 96360; 96361; 96372; G0378; J0360; J0610; J1170; J1650; J1815; J1885; J2270; J2405; J2765; J7030